=== PATIENT | female | born 1940 | race Caucasian/White ===

== ENCOUNTER 2017-09-22 15:40 | Inpatient (IN) | payer MEDICARE, BC ==
--- NOTE | ~2017-09-22 | PN ---
PATIENT:GABI TOLLIVER MEDICAL RECORD: [id number] LOCATION:J[facility]rell ADMISSION DATE: 09/22/17 PROGRESS NOTE DATE OF SERVICE: 10/10/2017 SUBJECTIVE: The patient's case was discussed with staff. She has no new complaint. OBJECTIVE: The patient has been significantly agitated, walking about the day room and the hallway attached to it, quite confused. Obviously, very emotionally distressed, but when asked about it, she is unable to indicate what is wrong. ASSESSMENT: No change in diagnoses. PLAN: The patient is eating reasonably well and taking her medications. The goal of treatment will be to reduce her emotional discomfort and reduce her agitation without worsening her already severe cognitive impairment or increasing her risk of falling. It seems like that would be a relatively easy thing to do, but it is not. At this point, given her [facility] and her current level of agitation, I do not think it is appropriate or safe for her to be managed in a long-term care setting. TRANSINT:[id number] Voice Confirmation ID: [id number] DOCUMENT ID: [id number] LAMAR DURBIN MD at 0912 CC: [id number] DICTATION DATE: 10/10/17 1217 SUGAR CONTROLLER: 10/10/17 1228 ADM IN [place] [id number] [place] [address]
--- NOTE | ~2017-09-22 | PN ---
PATIENT:GABI TOLLIVER MEDICAL RECORD: [id number] LOCATION:SylvesterFLAVIOJasbir PhanShabana ADMISSION DATE: 09/22/17 PROGRESS NOTE DATE OF SERVICE: 10/04/2017 SUBJECTIVE: The patient's case was discussed with staff. She has no new complaint. OBJECTIVE: The patient denies intent to harm herself or others. She is tolerating her medications well. ASSESSMENT: No change in diagnoses. PLAN: Current medicines and therapies have been reviewed, both will be maintained. Her long-term prognosis is guarded and I would anticipate that she can be transitioned out of the hospital soon if this level of improvement is maintained. TRANSINT:[id number] Voice Confirmation ID: [id number] DOCUMENT ID: [id number] LAMAR DURBIN MD at 0847 CC: [id number] DICTATION DATE: 10/04/17 1313 CATTYMAN: 10/04/17 1338 ADM IN [place] [address] [place] [address]
--- NOTE | ~2017-09-22 | PN ---
PATIENT:GABI TOLLIVER MEDICAL RECORD: [id number] LOCATION:JAM Terrell ADMISSION DATE: 09/22/17 PROGRESS NOTE DATE OF SERVICE: 09/25/2017 SUBJECTIVE: The patient does not offer a coherent complaint. OBJECTIVE: Staff report over the last 24 hours, the patient appears to be more confused than previously. She has not had any aggressive behavior during that time. On exam, the patient does seem perplexed. Mood is slightly anxious. Affect is distant and shallow. Speech is tangential and essentially nonsensical. Content of thought is positive for delusional ideation. Sensorium shows no improvement. ASSESSMENT: No change in diagnosis. PLAN: 1. Reduce Seroquel to 25 mg b.i.d. 2. Maintain other current medications. 3. Continue supportive therapy. TRANSINT:[id number] Voice Confirmation ID: [id number] DOCUMENT ID: [id number] GERA QURESHI III, MD at 1045 CC: [id number] DICTATION DATE: 09/25/17 1119 DOCTOR PODIATRIC MEDICINE: 09/25/17 1329 ADM IN [facility] [address] [place] [id number]
--- NOTE | ~2017-09-22 | PN ---
PATIENT:GABI TOLLIVER MEDICAL RECORD: [id number] LOCATION:JAM Terrell ADMISSION DATE: 09/22/17 PROGRESS NOTE DATE OF SERVICE: 10/01/2017 SUBJECTIVE: No new complaint. OBJECTIVE: The patient is showing improvement. She was actually joking with staff earlier today. On exam, mood is for the most part euthymic. Affect is generally pleasant. Speech continues to be very tangential. Content of thought continues to show delusional ideation. Sensorium does not show change. ASSESSMENT: No change in diagnosis. PLAN: 1. Continue current medications. 2. Continue supportive therapy. TRANSINT:[id number] Voice Confirmation ID: [id number] DOCUMENT ID: [id number] GERA QURESHI III, MD at 0657 CC: [id number] DICTATION DATE: 10/01/17 1135 CIGARETTE MAKING EXAMINER: 10/01/17 1157 ADM IN [place] [id number] [place] [id number]
--- NOTE | ~2017-09-22 | PN ---
PATIENT:GABI TOLLIVER MEDICAL RECORD: [id number] LOCATION:JAM Terrell ADMISSION DATE: 09/22/17 PROGRESS NOTE DATE OF SERVICE: 10/21/2017 SUBJECTIVE: No new complaint. OBJECTIVE: The patient has been occasionally noncompliant with medications; however, behavior has not escalated. She remains intrusive and has to be redirected. The patient had a valproic acid blood level of 70.5 this morning, which is within therapeutic range. On exam, the patient's mood is slightly elevated. Affect is childlike. Speech is rambling. Content of thought negative for overt psychosis. Sensorium unchanged. ASSESSMENT: No change in diagnosis. PLAN: 1. Continue all current medication. 2. Continue supportive therapy. TRANSINT:[id number] Voice Confirmation ID: [id number] DOCUMENT ID: [id number] GERA QURESHI III, MD at 0919 CC: [id number] DICTATION DATE: 10/21/17 1139 FURNACE HAND: 10/21/17 1217 ADM IN [place] [place] [address]
--- NOTE | ~2017-09-22 | DS ---
PATIENT:GABI TOLLIVER :44 MEDICAL RECORD: [id number] DISCHARGE SUMMARY ADMISSION DATE: 09/22/17 DISCHARGE DATE: 10/22/17 DATE OF ADMISSION: 09/22/2017 DATE OF DISCHARGE: 10/22/2017 HISTORY: This was the first long term admission for this 77-year-old white female. The patient had a past history of Alzheimer dementia and had become confused and agitated and was uncooperative with staff at her [facility]. For further details, please see previously dictated history. COURSE IN THE HOSPITAL: The patient was examined by primary care. She had coexisting illnesses, which included hypertension, hypothyroidism, and vitamin D deficiency. Over the course of the hospitalization, the patient remained quite labile and required frequent redirection. Initially, she was treated in the main part with neuroleptic medications but did become sedated. Emphasis was gradually changed to valproic acid. The patient received Depakene syrup and dosage was eventually stabilized at 750 mg b.i.d. On this level, she achieved therapeutic blood level of 70. She was maintained on Seroquel 50 mg b.i.d. and tolerated this medication well. Aside from this, she was kept on other nonpsychiatric medicines, which included Linzess 145 mcg daily. Mevacor 20 mg bedtime, Aricept 10 mg at bedtime, Synthroid 25 mcg daily, Megace 40 mg daily, lisinopril 10 mg daily and vitamin D 5000 units daily. Contact was maintained with the patient's family and eventually decision was reached to have her return to [facility] as her behavior had improved. FINAL DIAGNOSES: AXIS I: Alzheimer dementia with behavioral disturbance - improving. AXIS II: No diagnosis. AXIS III: Hypertension, hypothyroidism, hypercholesterolemia. AXIS IV: Moderate. AXIS V: 38. PLAN: 1. The patient is discharged on current medications. 2. Diet and activities as tolerated. 3. Follow up through the primary care physician at the [facility]. TRANSINT:[id number] Voice Confirmation ID: [id number] DOCUMENT ID: [id number] GERA QURESHI III, MD at 1056 CC: [id number] DICTATION DATE: 10/22/17 1013 LIAISON INSPECTION LABORATORY ASSISTANT: 10/22/17 2332 DIS IN 10/22/17 [place] [id number] [place] [address]
--- NOTE | ~2017-09-22 | PN ---
PATIENT:GABI TOLLIVER MEDICAL RECORD: [id number] LOCATION:JAM Terrell ADMISSION DATE: 09/22/17 PROGRESS NOTE DATE OF SERVICE: 09/28/2017 SUBJECTIVE: No new complaint. OBJECTIVE: The patient is continuing to show moderate improvement. She is tolerating her current medication without great difficulty. On exam, mood is slightly anxious. Affect is a peculiar with occasional inappropriate laughter. Speech is rambling. Content of thought continues to show evidence of delusional ideation and hallucinations. Sensorium is unchanged. ASSESSMENT: No change in diagnosis. PLAN: 1. Continue all current medications. 2. Continue supportive therapy. TRANSINT:[id number] Voice Confirmation ID: [id number] DOCUMENT ID: [id number] GERA QURESHI III, MD at 0848 CC: [id number] DICTATION DATE: 09/28/17 0800 CRM CAMPAIGN MANAGER: 09/28/17 1309 ADM IN [place] [address] [place] [address]
--- NOTE | ~2017-09-22 | PN ---
PATIENT:GABI TOLLIVER MEDICAL RECORD: [id number] LOCATION:JAM PhanShabana ADMISSION DATE: 09/22/17 PROGRESS NOTE DATE OF SERVICE: 10/02/2017 SUBJECTIVE: The patient's case was discussed with staff. She has no new complaint. OBJECTIVE: The patient denies intent to harm herself or others and generally tolerates her medicines well. Eye contact is fair. Concentration is fair. ASSESSMENT: No change in diagnoses. PLAN: Current medicines have been reviewed and will be maintained. Her long-term prognosis is guarded. Brief supportive and educational interventions were made. TRANSINT:[id number] Voice Confirmation ID: [id number] DOCUMENT ID: [id number] LAMAR DURBIN MD at 1024 CC: [id number] DICTATION DATE: 10/02/17 1457 TECHNICIAN: 10/02/17 1526 ADM IN [place] [address] [place] [id number]
--- NOTE | ~2017-09-22 | PN ---
PATIENT:GABI TOLLIVER MEDICAL RECORD: [id number] LOCATION:JAM Sylvester112 ADMISSION DATE: 09/22/17 PROGRESS NOTE DATE OF SERVICE: 10/19/2017 SUBJECTIVE: No coherent complaint. OBJECTIVE: The patient remains intrusive and had to be redirected. She eventually required p.r.n. because of her intrusiveness. On exam, mood is elevated. Affect is childlike and expansive. Speech is nonsensical. Content of thought unchanged. Sensorium unchanged. ASSESSMENT: No change in diagnosis. PLAN: 1. We will continue current treatment plan for now. 2. Continue supportive therapy. TRANSINT:[id number] Voice Confirmation ID: [id number] DOCUMENT ID: [id number] GERA QURESHI III, MD at 1124 CC: [id number] DICTATION DATE: 10/19/17 1147 MANAGED CARE MANAGER: 10/19/17 1200 ADM IN [place] [address] [place] [address]
--- NOTE | ~2017-09-22 | PN ---
PATIENT:GABI TOLLIVER MEDICAL RECORD: [id number] LOCATION:JAM Terrell ADMISSION DATE: 09/22/17 PROGRESS NOTE DATE OF SERVICE: 10/18/2017 SUBJECTIVE: No new complaint. OBJECTIVE: The patient's behavior has continued to worsen. She is increasingly intrusive and has been disrobing in front of male patients. She has to be redirected frequently. On exam, mood is elevated. Affect is inappropriate, overly affectionate. Speech is tangential and rambling. Content of thought is negative for overt psychosis. Sensorium unchanged. ASSESSMENT: No change in diagnosis. PLAN: 1. Change Depakote to 750 mg twice a day. 2. Depakote blood level on the . 3. Resume Seroquel at 50 mg b.i.d. TRANSINT:[id number] Voice Confirmation ID: [id number] DOCUMENT ID: [id number] GERA QURESHI III, MD at 1733 CC: [id number] DICTATION DATE: 10/18/17 1428 LEAD MOBILE DEVELOPER: 10/18/17 1522 ADM IN [facility] [address] [place] [address]
--- NOTE | ~2017-09-22 | PN ---
PATIENT:GABI TOLLIVER MEDICAL RECORD: [id number] LOCATION:JAM Terrell ADMISSION DATE: 09/22/17 PROGRESS NOTE DATE OF SERVICE: 10/15/2017 SUBJECTIVE: No new complaint. OBJECTIVE: The patient continues to show improvement in terms of her overall behavior, although she remains somewhat intrusive and inappropriately affectionate. She continues to have difficulty with bowel incontinence. The patient shows a significant degree of self neglect consistent with her profound dementia. Case was discussed with treatment team and we will anticipate discharge later this week. On exam, mood is somewhat elevated. Affect very childlike. Speech is nonsensical. Content of thought and sensorium both unchanged. ASSESSMENT: No change in diagnosis. PLAN: 1. Continue current medication. 2. Continue supportive therapy. TRANSINT:[id number] Voice Confirmation ID: [id number] DOCUMENT ID: [id number] GERA QURESHI III, MD at 1025 CC: [id number] DICTATION DATE: 10/15/17 1052 BLENDER CONVEYOR OPERATOR: 10/15/17 1141 ADM IN [place] [id number] [place] [address]
--- NOTE | ~2017-09-22 | PN ---
PATIENT:GABI TOLLIVER MEDICAL RECORD: [id number] LOCATION:DerekMelaMARCELO PhanShabana ADMISSION DATE: 09/22/17 PROGRESS NOTE DATE OF SERVICE: 10/08/2017 SUBJECTIVE: The patient's case was discussed with staff. She has no new complaint. OBJECTIVE: The patient denies intent to harm herself or others. She tolerates her medicines well. She has been agitated and disruptive. She has not been openly aggressive today. ASSESSMENT: No change in diagnoses. PLAN: Current medicines have been reviewed and will be maintained. Her long-term prognosis is guarded. Brief supportive and educational interventions were made. TRANSINT:[id number] Voice Confirmation ID: [id number] DOCUMENT ID: [id number] LAMAR DURBIN MD at 1150 CC: [id number] DICTATION DATE: 10/08/17 1458 VP COMMUNICATIONS: 10/08/17 1831 ADM IN [facility] [address] [place] [address]
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
--- NOTE | ~2017-09-22 | PN ---
PATIENT:GABI TOLLIVER MEDICAL RECORD: [id number] LOCATION:RAMAKRISHNAJasbir PhanShabana ADMISSION DATE: 09/22/17 PROGRESS NOTE DATE OF SERVICE: 10/03/2017 SUBJECTIVE: The patient's case was discussed with staff. She has no new complaint. OBJECTIVE: The patient is in good behavioral control with limited insight about her condition. She generally tolerates her medicines well. She is very poorly oriented. Clearly is having difficulty processing things in her environment and I think that causes her to become anxious and then aggressive. Although, I did not witness it this morning, I think that is what happened when she became aggressive and required p.r.n. medication. Based on this line of thinking, I am going to prescribe her a scheduled dose of Klonopin, which hopefully will relieve her anxiety without significantly impacting her ability to ambulate. TRANSINT:[id number] Voice Confirmation ID: [id number] DOCUMENT ID: [id number] LAMAR DURBIN MD at 1024 CC: [id number] DICTATION DATE: 10/03/17 1031 TREE EXPERT: 10/03/17 1042 ADM IN [place] [id number] [place] [id number]
--- NOTE | ~2017-09-22 | PN ---
PATIENT:GABI TLOLIVER MEDICAL RECORD: [id number] LOCATION:JAM PhanShabana ADMISSION DATE: 09/22/17 PROGRESS NOTE DATE OF SERVICE: 10/07/2017 SUBJECTIVE: The patient's case was discussed with staff. She has no new complaint. OBJECTIVE: The patient is in good behavioral control. She has no active thoughts of harming herself or others. She is tolerating her medicines well. ASSESSMENT: No change in diagnoses. PLAN: Brief supportive and educational interventions were made. The patient's long-term prognosis is guarded. TRANSINT:[id number] Voice Confirmation ID: [id number] DOCUMENT ID: [id number] LAMAR DURBIN MD at 0849 CC: [id number] DICTATION DATE: 10/07/17 1432 BUSHEL WORKER: 10/07/17 1751 ADM IN [place] [id number] [place] [address]
--- NOTE | ~2017-09-22 | PN ---
PATIENT:GABI TOLLIVER MEDICAL RECORD: [id number] LOCATION:JAM ReedMelaShabana ADMISSION DATE: 09/22/17 PROGRESS NOTE DATE OF SERVICE: 10/05/2017 SUBJECTIVE: The patient was seen for hospital rounds and her case was discussed with staff. OBJECTIVE: The patient has no new complaints. She was agitated last night, but has no recollection of those events. She is continuing to have disorganized and sometimes aggressive behavior, but in total she has improved significantly. ASSESSMENT: No change in diagnoses. PLAN: Brief supportive and educational interventions were made. Her long-term prognosis is guarded. I am going to increase her Seroquel to 25 mg 3 times daily and hopefully she will tolerate this and continue to show improvement. TRANSINT:[id number] Voice Confirmation ID: [id number] DOCUMENT ID: [id number] LAMAR DURBIN MD at 1117 CC: [id number] DICTATION DATE: 10/05/17 0859 BUSINESS SPECIALIST: 10/05/17 0918 ADM IN [place] [id number] [place] [id number]
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
--- NOTE | ~2017-09-22 | PN ---
PATIENT:GABI TOLLIVER MEDICAL RECORD: [id number] LOCATION:JAM ReedMelaShabana ADMISSION DATE: 09/22/17 PROGRESS NOTE DATE OF SERVICE: 10/12/2017 SUBJECTIVE: The patient's case was discussed with staff. She has no new complaint. OBJECTIVE: The patient slept reasonably well last night. She is eating marginally well. She has been quite confused and has exhibited a great deal of wandering, confusion, and some agitation with it. In reviewing her situation and medications, I do not think it is going to be helpful to significantly adjust her medicines. I think that this is a reasonable balance between agitation and the medications with the goal in mind to reduce some of her disruptive behaviors without significantly interfering with her ability to ambulate. TRANSINT:[id number] Voice Confirmation ID: [id number] DOCUMENT ID: [id number] LAMAR DURBIN MD at 1430 CC: [id number] DICTATION DATE: 10/12/17 1145 PRIMER CHARGER: 10/12/17 1241 ADM IN [place] [id number] [place] [id number]
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
--- NOTE | ~2017-09-22 | PN ---
PATIENT:GABI TOLLIVER MEDICAL RECORD: [id number] LOCATION:JAM Terrell ADMISSION DATE: 09/22/17 PROGRESS NOTE DATE OF SERVICE: 09/27/2017 SUBJECTIVE: No new complaint. OBJECTIVE: The patient is much more redirectable. She does wander quite a bit, but is sleeping better at night. On exam, mood is euthymic. Affect is fairly bland today. Speech is tangential. Content of thought is still positive for auditory hallucinations. Sensorium shows no change. ASSESSMENT: No change in diagnosis. PLAN: 1. Continue current medications. 2. Continue supportive therapy. TRANSINT:[id number] Voice Confirmation ID: [id number] DOCUMENT ID: [id number] GERA QUREHSI III, MD at 0727 CC: [id number] DICTATION DATE: 09/27/171101 OIL LEASE BUYER: 09/27/17 1126 ADM IN [place] [id number] [place] [id number]
--- NOTE | ~2017-09-22 | PN ---
PATIENT:GABI TOLLIVER MEDICAL RECORD: [id number] LOCATION:JAM Terrell ADMISSION DATE: 09/22/17 PROGRESS NOTE DATE OF SERVICE: 10/16/2017 SUBJECTIVE: No new complaint. OBJECTIVE: The patient unfortunately has shown a little aggression in her behavior. She then became combative last night and had to receive PRN medication. The patient is restless and in her present mood she continues to experience visual hallucinattions and has been observed picking unseen objects off the floor. She remains intrusive. On exam, the patient's mood is euthymic, affect is very childlike. Speech is nonsensical. Content of thought as noted above. Sensorium unchanged. ASSESSMENT: No change in diagnosis. PLAN: 1. We will likely adjust dosage of Depakote. 2. Other medication adjustment as indicated. 3. Continue supportive therapy. TRANSINT:[id number] Voice Confirmation ID: [id number] DOCUMENT ID: [id number] GERA QURESHI III, MD at 0913 CC: [id number] DICTATION DATE: 10/16/17 1117 PRINTER SMALL PRINT SHOP: 10/16/17 1144 ADM IN [facility] [address] [place] [address]
--- NOTE | ~2017-09-22 | PN ---
PATIENT:GABI TOLLIVER MEDICAL RECORD: [id number] LOCATION:JAM Terrell ADMISSION DATE: 09/22/17 PROGRESS NOTE DATE OF SERVICE: 09/26/2017 SUBJECTIVE: No new complaint. The patient continues to speak in a basically nonsensical fashion. OBJECTIVE: The patient remains fairly restless, but is not agitated or combative. Speech is rambling and nonsensical. Mood is anxious. Affect is very shallow. Content of thought is positive for delusional ideation. Sensorium shows no change. ASSESSMENT: No change in diagnosis. PLAN: 1. Continue current medications. 2. Continue supportive therapy. TRANSINT:[id number] Voice Confirmation ID: [id number] DOCUMENT ID: [id number] GERA QURESHI III, MD at 0510 CC: [id number] DICTATION DATE: 09/26/17 1149 CLAIMS ADJUSTER CROP: 09/26/17 1219 ADM IN [place] [address] [place] [address]
--- NOTE | ~2017-09-22 | PN ---
PATIENT:GABI TOLLIVER MEDICAL RECORD: [id number] LOCATION:JAM Terrell ADMISSION DATE: 09/22/17 PROGRESS NOTE DATE OF SERVICE: 10/17/2017 SUBJECTIVE: The patient's case was discussed with staff. She has no new complaint. OBJECTIVE: The patient denies intent to harm herself or others. She is wandering and confused, but not openly aggressive. ASSESSMENT: No change in diagnoses. PLAN: Current medicines and therapies have been reviewed and will be maintained. Long-term prognosis is guarded. TRANSINT:[id number] Voice Confirmation ID: [id number] DOCUMENT ID: [id number] LAMAR DURBIN MD at 1344 CC: [id number] DICTATION DATE: 10/17/17 1226 VOTATOR MACHINE OPERATOR: 10/17/17 1233 ADM IN [facility] [address] [place] [address]
--- NOTE | ~2017-09-22 | PN ---
PATIENT:GABI TOLLIVER MEDICAL RECORD: [id number] LOCATION:JAM Terrell ADMISSION DATE: 09/22/17 PROGRESS NOTE DATE OF SERVICE: 10/09/2017 SUBJECTIVE: The patient's case was discussed with staff. She has no new complaint. OBJECTIVE: The patient denies intent to harm herself or others. She at times is uncooperative and last night, she refused to take medications. ASSESSMENT: No change in diagnoses. PLAN: Current medicines have been reviewed, but it is difficult to make reasonable adjustments when she is not taking them consistently. The treatment team suggested a long-acting injectable antipsychotic, but I am reluctant to do this in a patient who does not have a chronic mental illness. It may become necessary if she continues to be noncompliant and her behaviors make her unmanageable in a long-term care setting. At this point, I am going to continue to encourage her to take her medicines and will work with the staff on being persistent in getting her to take her medicines. That probably is going to be a successful endeavor, but I want to try it nevertheless so that I can at least demonstrate to myself that I have tried what I can to help her and make her more manageable in the detention. TRANSINT:[id number] Voice Confirmation ID: [id number] DOCUMENT ID: [id number] LAMAR DURBIN MD at 1206 CC: [id number] DICTATION DATE: 10/09/17 1203 TIMBER CUTTER: 10/09/17 1213 ADM IN [place] [id number] [place] [address]
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
--- NOTE | ~2017-09-22 | PN ---
PATIENT:GABI TOLLIVER MEDICAL RECORD: [id number] LOCATION:JAM Terrell ADMISSION DATE: 09/22/17 PROGRESS NOTE DATE OF SERVICE: 10/11/2017 SUBJECTIVE: The patient's case was discussed with staff. She has no new complaint. OBJECTIVE: The patient is severely impaired cognitively. She has very limited insight about her condition. She generally tolerates her medicines well. ASSESSMENT: No change in diagnoses. PLAN: Supportive and educational interventions were made. Current medicines have been reviewed. I think the patient is close to maximum hospital benefit and if this level of improvement continues, I would anticipate she can be transitioned out of the hospital soon. TRANSINT:[id number] Voice Confirmation ID: [id number] DOCUMENT ID: [id number] LAMAR DURBIN MD at 1139 CC: [id number] DICTATION DATE: 10/11/17 1318 DEPUTY GENERAL COUNSEL: 10/11/17 1935 ADM IN [facility] [address] [place] [address]
[2017-09-22 19:30] VITALS: BP 126/73
[2017-09-23] MEDS ORDERED: LISINOPRIL10 MG PO (00:26)
[2017-09-23] MEDS ORDERED: LOVASTATIN20 MG PO (00:27)
[2017-09-23] MEDS ORDERED: MEGACE40 MG PO (00:28)
[2017-09-23] MEDS ORDERED: MELATONIN 3 MG1 TAB PO (00:29)
[2017-09-23] MEDS ORDERED: VITAMIN D5000 UNIT PO (00:30)
[2017-09-23] MEDS ORDERED: ZOLOFT100 MG PO (00:31)
[2017-09-23] MEDS ORDERED: KLONOPIN0.5 MG PO (00:32)
[2017-09-23] MEDS ORDERED: DEPAKOTE SPRIN125 MG PO (00:35)
[2017-09-23 06:19] VITALS: BP 140/59
[2017-09-23 06:35] LABS: BASOPHILS 0.2 % (0-2); EOSINOPHILS 1.9 % (0-7); HEMATOCRIT 36.3 % (36.0-48.0); HEMOGLOBIN 11.9 g/dL (12-16); IMMATURE GRANULOCYTES 0.2 % (0-5); LYMPHOCYTES 35.9 % (15-50); MCH 30.7 pg (26.0-34.0); MCHC 32.8 g/dL (31.0-37.0); MCV 93.8 fL (80.0-100.0); MEAN PLATELET VOLUME 10.1 fL (7.4-10.4); MONOCYTES 8.9 % (2-11); NEUTROPHILS 52.9 % (40-80); PLATELET COUNT 146 10x3/uL (130-400); RBC 3.87 10x6/uL (4.00-5.40); RDW 13.8 % (11.5-14.5); WBC 5.8 10x3/uL (4.8-10.8)
[2017-09-23 07:34] LABS: ALBUMIN 2.7 g/dL (3.4-5.0); ALKALINE PHOSPHATASE 64 U/L (46-116); ALT (SGPT) 25 U/L (10-68); CALC OSMOLALITY 284 mosm/kg (275-300); CALCIUM 8.3 mg/dL (8.5-10.1); CARBON DIOXIDE 25.2 mmol/L (21.0-32.0); CHLORIDE - SERUM 108 mmol/L (98-107); CHOL - HDL RATIO 3.4 ratio (2.3-4.1); CHOLESTEROL, TOTAL 146 mg/dL (0-200); CREATININE - SERUM 0.6 mg/dL (0.6-1.3); GLUCOSE 92 mg/dL (74-106); HDL CHOLESTEROL 43 mg/dL (32-96); LDL CHOLESTEROL 89 mg/dL (0-100); LDL-HDL RATIO 2.1 ratio (1.5-3.5); POTASSIUM - SERUM 3.7 mmol/L (3.5-5.1); SODIUM 142 mmol/L (136-145); THYROID STIMULATING HORMONE 4.06 uIU/mL (0.36-3.74); TRIGLYCERIDE 72 mg/dL (30-200); UREA NITROGEN 19 mg/dL (7-18); VALPROIC ACID (DEPAKOTE) 15.7 ug/mL (50.0-100.0); eGFR NON AFRICAN AMERICAN > 90 mL/min (90-120)
[2017-09-23 08:46] VITALS: BP 106/70
[2017-09-23 15:54] VITALS: BMI 22.7
[2017-09-23 19:54] VITALS: BP 114/39
[2017-09-24 07:26] LABS: VITAMIN D 25 HYDROXY 35.9 ng/mL (30.0-100.0)
[2017-09-24 08:00] VITALS: BP 128/68
[2017-09-24 08:18] LABS: FOLATE (FOLIC ACID) - SERUM 10.3 ng/mL (>3.0)
[2017-09-24 09:19] LABS: RAPID PLASMA REAGIN Non Reactive (Non Reactive)
[2017-09-24 14:28] VITALS: BMI 22.7
[2017-09-24 21:23] VITALS: BP 147/65
[2017-09-25 04:20] LABS: APPEARANCE CLEAR (CLEAR); BACTERIA FEW /hpf (NONE SEEN); BILIRUBIN NEGATIVE (NEGATIVE); COLOR YELLOW (YELLOW); EPITHELIAL CELLS 0-5 /hpf (0-5); GLUCOSE NEGATIVE (NEGATIVE); KETONE NEGATIVE (NEGATIVE); NITRITE NEGATIVE (NEGATIVE); PROTEIN NEGATIVE (NEGATIVE); RED CELLS - URINE 0-5 /hpf (0-5); UROBILINOGEN NORMAL (NORMAL); WHITE CELLS - URINE 0-5 /hpf (0-5)
[2017-09-25] MEDS ORDERED: ACETAMINOPHEN500 M1 PO (07:43)
[2017-09-25 07:59] VITALS: BP 138/93
[2017-09-25 19:30] VITALS: BP 117/50
[2017-09-26 10:00] VITALS: BP 148/77
[2017-09-26 19:43] VITALS: BP 117/69
[2017-09-27 07:07] LABS: APPEARANCE SLT CLOUDY (CLEAR); BILIRUBIN NEGATIVE (NEGATIVE); COLOR DK YELLOW (YELLOW); GLUCOSE NEGATIVE (NEGATIVE); KETONE NEGATIVE (NEGATIVE); NITRITE NEGATIVE (NEGATIVE); PROTEIN NEGATIVE (NEGATIVE); UROBILINOGEN NORMAL (NORMAL)
[2017-09-27 07:17] LABS: EPITHELIAL CELLS 0-5 /hpf (0-5); MUCUS >1+ /lpf (NONE SEEN); RED CELLS - URINE 0-5 /hpf (0-5); WHITE CELLS - URINE OCC /hpf (0-5)
[2017-09-27 07:18] LABS: GRANULAR CAST OCC /lpf (NONE SEEN)
[2017-09-27 09:47] VITALS: BP 131/87
[2017-09-27 19:44] VITALS: BP 130/86
[2017-09-28 10:17] VITALS: BP 127/76
[2017-09-28 19:27] VITALS: BP 122/64
[2017-09-29 07:00] VITALS: BP 126/78
[2017-09-29 21:00] VITALS: BP 124/50
[2017-09-30 07:00] VITALS: BP 135/56
[2017-09-30 20:56] VITALS: BP 121/62
[2017-10-01 10:02] VITALS: BP 143/77
[2017-10-01 19:58] VITALS: BP 157/54
[2017-10-02 10:09] VITALS: BP 123/59
[2017-10-02 19:59] VITALS: BP 128/67
[2017-10-03 10:22] VITALS: BP 122/72
[2017-10-03 19:31] VITALS: BP 128/83
[2017-10-04 09:22] VITALS: BP 112/67
[2017-10-04 19:47] VITALS: BP 117/50
[2017-10-05 09:12] VITALS: BP 114/70
[2017-10-05 20:13] VITALS: BP 110/64
[2017-10-06 07:43] VITALS: BP 118/72
[2017-10-06 20:01] VITALS: BP 124/60
[2017-10-07 07:00] VITALS: BP 120/71
[2017-10-07 19:44] VITALS: BP 134/51
[2017-10-08 08:57] VITALS: BP 131/70
[2017-10-08 20:10] VITALS: BP 111/50
[2017-10-09 09:52] VITALS: BP 122/68
[2017-10-09 19:45] VITALS: BP 104/71
[2017-10-09 20:09] VITALS: BP 126/83
[2017-10-10 09:51] VITALS: BP 118/64
[2017-10-10 23:34] VITALS: BP 118/62
[2017-10-11 09:56] VITALS: BP 128/68
[2017-10-11 20:08] VITALS: BP 124/62
[2017-10-12 07:37] VITALS: BP 123/54
[2017-10-12 08:42] VITALS: BP 156/95
[2017-10-12 10:27] VITALS: BP 123/54
[2017-10-12 19:57] VITALS: BP 124/60
[2017-10-13 07:34] VITALS: BP 125/80
[2017-10-13 18:14] LABS: BASOPHILS 0.3 % (0-2); EOSINOPHILS 1.8 % (0-7); HEMATOCRIT 40.4 % (36.0-48.0); HEMOGLOBIN 13.5 g/dL (12-16); IMMATURE GRANULOCYTES 0.2 % (0-5); LYMPHOCYTES 37.5 % (15-50); MCH 32.2 pg (26.0-34.0); MCHC 33.4 g/dL (31.0-37.0); MCV 96.4 fL (80.0-100.0); MEAN PLATELET VOLUME 10.5 fL (7.4-10.4); MONOCYTES 12.6 % (2-11); NEUTROPHILS 47.6 % (40-80); PLATELET COUNT 176 10x3/uL (130-400); RBC 4.19 10x6/uL (4.00-5.40); RDW 13.9 % (11.5-14.5); WBC 9.1 10x3/uL (4.8-10.8)
[2017-10-13 18:39] LABS: ANION GAP 12.8 mmol/L (8-16); CALCIUM 9.4 mg/dL (8.5-10.1); CARBON DIOXIDE 27.4 mmol/L (21.0-32.0); CREATININE - SERUM 0.9 mg/dL (0.6-1.3); POTASSIUM - SERUM 4.2 mmol/L (3.5-5.1); VALPROIC ACID (DEPAKOTE) 46.3 ug/mL (50.0-100.0)
[2017-10-13 23:56] VITALS: BP 130/79
[2017-10-14 19:16] VITALS: BP 121/66
[2017-10-15 07:00] VITALS: BP 115/70
[2017-10-15 19:52] VITALS: BP 156/60
[2017-10-16 10:24] VITALS: BP 119/70
[2017-10-16 19:54] VITALS: BP 110/83
[2017-10-17 07:41] VITALS: BP 140/58
[2017-10-17 19:56] VITALS: BP 120/58
[2017-10-18 09:28] VITALS: BP 98/76
[2017-10-18 20:10] VITALS: BP 149/74
[2017-10-19 07:00] VITALS: BP 132/70
[2017-10-19 19:57] VITALS: BP 136/73
[2017-10-20 07:52] VITALS: BP 136/76
[2017-10-20 19:53] VITALS: BP 154/53
[2017-10-21 07:00] VITALS: BP 115/84
[2017-10-21] MEDS ORDERED: LINZESS145 MCG PO (16:12)
[2017-10-21] MEDS ORDERED: SEROQUEL25 MG PO (16:12)
[2017-10-21] MEDS ORDERED: DEPAKENE 2250 MG/5 M PO (16:12)
[2017-10-21] MEDS ORDERED: SYNTHROID25 MCG PO (16:13)
[2017-10-22 07:00] VITALS: BP 143/77
== END 2017-10-22 12:40 | DRG 57 ==
LOC: D.PSYCH 15:40
PROVIDERS: Family Medicine; Psychiatry & Neurology Psychiatry
DX: G30.9 Alzheimer's disease, unspecified (principal); F02.81 Dementia in other diseases classified elsewhere, unspecified severity, with behavioral disturbance; I10 Essential (primary) hypertension; E03.9 Hypothyroidism, unspecified; E78.00 Pure hypercholesterolemia, unspecified; F41.8 Other specified anxiety disorders; E55.9 Vitamin D deficiency, unspecified; R63.0 Anorexia; Z68.22 Body mass index [BMI] 22.0-22.9, adult; E78.5 Hyperlipidemia, unspecified; K59.00 Constipation, unspecified; M54.9 Dorsalgia, unspecified

== ENCOUNTER 2017-11-05 20:41 | Inpatient (IN) | payer MEDICARE, BC ==
[~2017-11-05] VITALS: Ht 165.1 cm; Wt 54.2 kg
--- NOTE | ~2017-11-05 | PN ---
PATIENT:GABI TOLLIVER MEDICAL RECORD: [id number] LOCATION:RAMAKRISHNAJasbir DerekMelaShabana ADMISSION DATE: 11/05/17 PROGRESS NOTE DATE OF SERVICE: 11/21/2017 SUBJECTIVE: The patient's case was discussed with staff. She has no new complaint. OBJECTIVE: The patient is in good behavioral control with limited insight about her condition. She tolerates her medicines well. ASSESSMENT: No change in diagnoses. PLAN: Current medicines and therapies have been reviewed and will be maintained. Long-term prognosis is guarded. I anticipate she can be transitioned out of the hospital soon. TRANSINT:[id number] Voice Confirmation ID: [id number] DOCUMENT ID: [id number] LAMAR DURBIN MD at 0804 CC: [id number] DICTATION DATE: 11/21/17 1416 SOFTWARE APPLICATIONS DESIGNER: 11/21/17 1429 ADM IN [place] [id number] [place] [id number]
--- NOTE | ~2017-11-05 | PN ---
PATIENT:GABI TOLLIVER MEDICAL RECORD: [id number] LOCATION:JAM Phan112 ADMISSION DATE: 11/05/17 PROGRESS NOTE DATE OF SERVICE: 11/22/2017 SUBJECTIVE: No new complaint noted. OBJECTIVE: The patient has continued to do fairly well. She will be evaluated for longterm on Saturday. On exam, mood is euthymic. Affect is simple and childlike. Speech is repetitive. Content of thought is negative for overt psychosis. Sensorium unchanged. ASSESSMENT: No change in diagnosis. PLAN: 1. Continue current medication. 2. Continue supportive therapy. TRANSINT:[id number] Voice Confirmation ID: [id number] DOCUMENT ID: [id number] GERA QURESHI III, MD at 1037 CC: [id number] DICTATION DATE: 11/22/17 1117 YARD ASSISTANT: 11/22/17 1300 ADM IN [place] [id number] [place] [address]
--- NOTE | ~2017-11-05 | PN ---
PATIENT:GABI TOLLIVER MEDICAL RECORD: [id number] LOCATION:RAMAKRISHNAJasbir DerekMelaShabana ADMISSION DATE: 11/05/17 PROGRESS NOTE DATE OF SERVICE: 11/09/2017 SUBJECTIVE: The patient's case was discussed with staff. She has no new complaint. OBJECTIVE: The patient is in good behavioral control with limited insight about her condition. She tolerates her medicines well. ASSESSMENT: No change in diagnoses. PLAN: Supportive and educational interventions were made. Senior Care prognosis is guarded. She clearly has improved significantly and I would anticipate she can be transitioned back to the assisted soon. TRANSINT:[id number] Voice Confirmation ID: [id number] DOCUMENT ID: [id number] LAMAR DURBIN MD at 1809 CC: [id number] DICTATION DATE: 11/09/17 1043 FIELD UNDERWRITER: 11/09/17 1125 ADM IN [facility] [address] [place] [address]
--- NOTE | ~2017-11-05 | PN ---
PATIENT:GABI TOLLIVER MEDICAL RECORD: [id number] LOCATION:JAM Phan112 ADMISSION DATE: 11/05/17 PROGRESS NOTE DATE OF SERVICE: 11/07/2017 SUBJECTIVE: The patient's case was discussed with staff. She has no new complaint. OBJECTIVE: The patient is continuing to be inappropriate trying to hug and kiss others, not understanding what is going on. Her dementia is clearly quite advanced. ASSESSMENT: No change in diagnoses. PLAN: The patient will be maintained on current medicines, which I have not had an opportunity to become effective. She will be monitored for clinical changes associated with her use. In discussing the situation with the treatment team, I think that we are going to most definitely recommend a placement in a behavioral halfway as opposed to the type of facility she is currently in. Her long-term prognosis is exceedingly poor given the advanced nature of her illness. TRANSINT:[id number] Voice Confirmation ID: [id number] DOCUMENT ID: [id number] LAMAR DURBIN MD at 1247 CC: [id number] DICTATION DATE: 11/07/17 1340 WEIGHT LOSS COUNSELOR: 11/07/17 1432 ADM IN [facility] [address] [place] [address]
--- NOTE | ~2017-11-05 | PN ---
PATIENT:GABI TOLLIVER MEDICAL RECORD: [id number] LOCATION:DerekLUCIAJasbir PhanShabana ADMISSION DATE: 11/05/17 PROGRESS NOTE DATE OF SERVICE: 11/26/2017 SUBJECTIVE: The patient's case was discussed with staff. She has no new complaint. OBJECTIVE: The patient denies intent to harm herself or others. She tolerates her medicines well. ASSESSMENT: No change in diagnoses. PLAN: Brief supportive and educational interventions were made. Long-term prognosis is guarded. TRANSINT:[id number] Voice Confirmation ID: [id number] DOCUMENT ID: [id number] LAMAR DURBIN MD at 1444 CC: [id number] DICTATION DATE: 11/26/17 1518 HELP DESK REP: 11/26/17 1532 ADM IN [place] [id number] [place] [id number]
--- NOTE | ~2017-11-05 | PN ---
PATIENT:GABI TOLLIVER MEDICAL RECORD: [id number] LOCATION:JAM Phan112 ADMISSION DATE: 11/05/17 PROGRESS NOTE DATE OF SERVICE: 11/25/2017 SUBJECTIVE: The patient's case was discussed with staff. She has no new complaint. OBJECTIVE: The patient is in good behavioral control with limited insight about her condition. She does tolerate her medicines well. She has been declined by the [facility] in [place] and at this point is being referred to another [place] [facility] [place]. If accepted, she may be discharged at any time. TRANSINT:[id number] Voice Confirmation ID: [id number] DOCUMENT ID: [id number] LAMAR DURBIN MD at 1016 CC: [id number] DICTATION DATE: 11/25/171908 LINE SERVICE PERSON: 11/26/17 0336 ADM IN [facility] [address] [place] [address]
--- NOTE | ~2017-11-05 | PN ---
PATIENT:GABI TOLLIVER MEDICAL RECORD: [id number] LOCATION:JAM Terrell ADMISSION DATE: 11/05/17 PROGRESS NOTE DATE OF SERVICE: 11/11/2017 SUBJECTIVE: The patient's case was discussed with staff. She has no new complaint. OBJECTIVE: The patient is in good behavioral control with limited insight about her condition. She tolerates her medicines well. ASSESSMENT: No change in diagnoses. PLAN: Brief supportive and educational interventions were made. Long-term prognosis is guarded. I anticipate the patient can be transitioned back to the residential soon if this level of improvement is maintained. TRANSINT:[id number] Voice Confirmation ID: [id number] DOCUMENT ID: [id number] LAMAR DURBIN MD at 1445 CC: [id number] DICTATION DATE: 11/11/17 1344 WELDING OPERATOR: 11/11/17 1359 ADM IN [place] [id number] [place] [address]
--- NOTE | ~2017-11-05 | PN ---
PATIENT:GABI TOLLIVER MEDICAL RECORD: [id number] LOCATION:RAMAKRISHNAJasbir PhanShabana ADMISSION DATE: 11/05/17 PROGRESS NOTE DATE OF SERVICE: 11/12/2017 SUBJECTIVE: The patient's case was discussed with staff. She has no new complaint. OBJECTIVE: The patient is sleepy. I do believe that this is the Klonopin catching up with her. I am going to discontinue it today and will likely restart it at a lower dose later. ASSESSMENT: No change in diagnoses. PLAN: Changes were made as described above. It is my opinion that the patient is in need of a prison or a prison unit that has a greater specialized focus on dementia patients. TRANSINT:[id number] Voice Confirmation ID: [id number] DOCUMENT ID: [id number] LAMAR DURBIN MD at 1147 CC: [id number] DICTATION DATE: 11/12/17 1509 STAFF ELECTRONIC WARFARE OFFICER: 11/12/17 1521 ADM IN [place] [id number] [place] [address]
--- NOTE | ~2017-11-05 | PN ---
PATIENT:GABI TOLLIVER MEDICAL RECORD: [id number] LOCATION:JAM PhanShabana ADMISSION DATE: 11/05/17 PROGRESS NOTE DATE OF SERVICE: 11/27/2017 SUBJECTIVE: The patient's case was discussed with staff. She has no new complaint. OBJECTIVE: The patient is in good behavioral control with limited insight about her condition. She does tolerate her medicines well. ASSESSMENT: No change in diagnoses. PLAN: Brief supportive and educational interventions were made. The patient is at or near her baseline level of functioning and is going to be transitioned to the senior living today. TRANSINT:[id number] Voice Confirmation ID: [id number] DOCUMENT ID: [id number] LAMAR DURBIN MD at 1403 CC: [id number] DICTATION DATE: 11/27/17 1456 HIGH SCHOOL ART TEACHER: 11/27/17 1607 DIS IN 11/27/17 [place] [id number] [place] [address]
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
--- NOTE | ~2017-11-05 | PN ---
PATIENT:GABI TOLLIVER MEDICAL RECORD: [id number] LOCATION:DerekLUCIAJasbir DerekMelaShabana ADMISSION DATE: 11/05/17 PROGRESS NOTE DATE OF SERVICE: 11/13/2017 SUBJECTIVE: The patient's case was discussed with staff. She has no new complaint. OBJECTIVE: The patient denies intent to harm herself or others. She generally tolerates her medicines well. Eye contact is fair. ASSESSMENT: No change in diagnoses. PLAN: The patient will be maintained on current medicines, which I have reviewed. Her long-term prognosis is guarded. TRANSINT:[id number] Voice Confirmation ID: [id number] DOCUMENT ID: [id number] LAMAR DURBIN MD at 1304 CC: [id number] DICTATION DATE: 11/13/17 1222 RETAIL SUPPORT MANAGER: 11/13/17 1319 ADM IN [place] [id number] [place] [address]
--- NOTE | ~2017-11-05 | PN ---
PATIENT:GABI TOLLIVER MEDICAL RECORD: [id number] LOCATION:JAM Terrell ADMISSION DATE: 11/05/17 PROGRESS NOTE DATE OF SERVICE: 11/15/2017 SUBJECTIVE: No new complaint noted. OBJECTIVE: The patient is cooperative. She is tolerating medications well. On exam, mood is euthymic. Affect is very constricted. Speech is terse. Content of thought is negative for overt psychosis. Sensorium shows no change. ASSESSMENT: No change in diagnosis. PLAN: 1. Continue current medications. 2. Continue supportive therapy. TRANSINT:[id number] Voice Confirmation ID: [id number] DOCUMENT ID: [id number] GERA QURESHI III, MD at 1341 CC: [id number] DICTATION DATE: 11/15/17 1149 CHEMICAL PLANT OPERATOR: 11/15/17 1154 ADM IN [facility] [address] [place] [address]
--- NOTE | ~2017-11-05 | PN ---
PATIENT:GABI TOLLIVER MEDICAL RECORD: [id number] LOCATION:JAM Terrell ADMISSION DATE: 11/05/17 PROGRESS NOTE DATE OF SERVICE: 11/19/2017 SUBJECTIVE: The patient's case was discussed with staff. She has no new complaint. OBJECTIVE: The patient is in good behavioral control with limited insight about her condition. She tolerates her medicines well. She is much more redirectable. Her long-term prognosis is guarded. At this point, there is a facility in [place] that has a wing that is restricted to females only. I think this would help her since a big part of her confusion is that she thinks every man is her or son and wants to hug or kiss him, not in a sexual way, but just being affectionate and then when she stopped from doing so, she becomes angry. I think it will help her to be in that kind of a unit. Unfortunately that will separate her from her who is in [place], but he recognizes the seriousness of her problem and is willing to give this a try. TRANSINT:[id number] Voice Confirmation ID: [id number] DOCUMENT ID: [id number] LAMAR DURBIN MD at 1218 CC: [id number] DICTATION DATE: 11/19/17 1452 WIND TURBINE PERFORMANCE ENGINEER: 11/19/17 1501 ADM IN [place] [id number] [place] [id number]
--- NOTE | ~2017-11-05 | PN ---
PATIENT:GABI TOLLIVER MEDICAL RECORD: [id number] LOCATION:JAM ReedMela112 ADMISSION DATE: 11/05/17 PROGRESS NOTE DATE OF SERVICE: 11/14/2017 SUBJECTIVE: The patient's case was discussed with staff. She has no new complaint. OBJECTIVE: The patient continues to be intrusive wanting to hug or kiss strangers. Apparently, she believes that she recognizes either her , a child, a relative, but she is always mistaken. Sometimes she becomes agitated when redirected. ASSESSMENT: No change in diagnoses. PLAN: This patient is exhibiting behaviors that are perfectly normal for her condition. They are not a direct predatory threat to anyone and the solution is not pharmacologic. I am recommending placement in a specialized dementia unit, where she can have additional supervision. At this point, her is reluctant to do that because there is no such unit in the town he lives in and he would have to be driving anywhere from half hour to an hour to see her. I understand the hardship this places on him; however, as far as helping her, that is the only thing I think I can do reasonably. I do plan to discharge her after the weekend if he does not want to follow through with this plan, but I will not accept her back unless there is some significant change in her behaviors. There is no reason to return her here when there is not anything I can do for her pharmacologically. TRANSINT:[id number] Voice Confirmation ID: [id number] DOCUMENT ID: [id number] LAMAR DURBIN MD at 1403 CC: [id number] DICTATION DATE: 11/14/17 1357 SKEIN MERCERIZING MACHINE OPERATOR: 11/14/17 1438 ADM IN [facility] [address] [place] [address]
--- NOTE | ~2017-11-05 | PN ---
PATIENT:GABI TOLLIVER MEDICAL RECORD: [id number] LOCATION:JAM Phan112 ADMISSION DATE: 11/05/17 PROGRESS NOTE DATE OF SERVICE: 11/20/2017 SUBJECTIVE: The patient's case was discussed with staff. She has no new complaint. She is intrusive and difficult to redirect. She has not been openly aggressive today. ASSESSMENT: No change in diagnoses. PLAN: The patient is going to be maintained on current medicines. I anticipate she can be discharged to the [facility] in [place] when those arrangements are made. TRANSINT:[id number] Voice Confirmation ID: [id number] DOCUMENT ID: [id number] LAMAR DURBIN MD at 1341 CC: [id number] DICTATION DATE: 11/20/17 1235 COMPUTER GRAPHICS ILLUSTRATOR: 11/20/17 1310 ADM IN [place] [id number] [place] [address]
--- NOTE | ~2017-11-05 | PN ---
PATIENT:GABI TOLLIVER MEDICAL RECORD: [id number] LOCATION:RAMAKRISHNAJasbir DerekMelaShabana ADMISSION DATE: 11/05/17 PROGRESS NOTE DATE OF SERVICE: 11/18/2017 SUBJECTIVE: The patient's case was discussed with staff. She has no new complaint. OBJECTIVE: The patient is in good behavioral control with limited insight about her condition. She tolerates her medicines well. ASSESSMENT: No change in diagnoses. PLAN: The patient is still very impaired cognitively. I anticipate she can be transitioned out of the hospital when appropriate placement is arranged. TRANSINT:[id number] Voice Confirmation ID: [id number] DOCUMENT ID: [id number] LAMAR DURBIN MD at 1344 CC: [id number] DICTATION DATE: 11/18/17 1429 PSYCH SALES SPECIALIST: 11/18/17 1448 ADM IN [facility] [address] [place] [address]
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
--- NOTE | ~2017-11-05 | PN ---
PATIENT:GABI TOLLIVER MEDICAL RECORD: [id number] LOCATION:JAM Terrell ADMISSION DATE: 11/05/17 PROGRESS NOTE DATE OF SERVICE: 11/23/2017 SUBJECTIVE: The patient's case was discussed with staff. She has no new complaint. OBJECTIVE: The patient is in good behavioral control with limited insight about her condition. She does tolerate her medicines well. ASSESSMENT: No change in diagnoses. PLAN: The patient may be transitioned out of the hospital once medically stabilized. Her long-term prognosis is guarded. TRANSINT:[id number] Voice Confirmation ID: [id number] DOCUMENT ID: [id number] LAMAR DURBIN MD at 1844 CC: [id number] DICTATION DATE: 11/23/17 1109 CHAINSTITCH SEWING MACHINE OPERATOR: 11/24/17 0050 ADM IN [place] [id number] [place] [address]
--- NOTE | ~2017-11-05 | PN ---
PATIENT:GABI TOLLIVER MEDICAL RECORD: [id number] LOCATION:DerekLUCIAJasbir PhanShabana ADMISSION DATE: 11/05/17 PROGRESS NOTE DATE OF SERVICE: 11/08/2017 SUBJECTIVE: The patient's case was discussed with staff. She has no new complaint. OBJECTIVE: The patient denies intent to harm herself or others. She generally tolerates her medicines well. Eye contact is poor. ASSESSMENT: No change in diagnoses. PLAN: Brief supportive and educational interventions were made. Alf prognosis is guarded. TRANSINT:[id number] Voice Confirmation ID: [id number] DOCUMENT ID: [id number] LAMAR DURBIN MD at 1921 CC: [id number] DICTATION DATE: 11/08/17 1410 ROLLER SKATES ASSEMBLER: 11/08/17 1426 ADM IN [facility] [address] [place] [address]
[~2017-11-05 20:41] MED LIST: ACETAMINOPHEN500 M1 PO; DEPAKENE 2250 MG/5 M PO; DEPAKOTE SPRIN125 MG PO; KLONOPIN0.5 MG PO; LINZESS145 MCG PO; LISINOPRIL10 MG PO; LOVASTATIN20 MG PO; MEGACE40 MG PO; MELATONIN 3 MG1 TAB PO; SEROQUEL25 MG PO; SYNTHROID25 MCG PO; VITAMIN D5000 UNIT PO; ZOLOFT100 MG PO
[2017-11-05] MEDS ORDERED: KLONOPIN0.5 MG PO (21:11)
[2017-11-05] MEDS ORDERED: DEPAKOTE SPRIN125 MG PO (21:12)
[2017-11-05] MEDS ORDERED: ARICEPT10 MG PO (21:18)
[2017-11-05] MEDS ORDERED: LINZESS145 MCG PO (21:19)
[2017-11-05 23:37] VITALS: BP 147/78; BMI 22.8
[2017-11-06 09:08] LABS: BASOPHILS 0.4 % (0-2); EOSINOPHILS 1.6 % (0-7); HEMATOCRIT 41.1 % (36.0-48.0); HEMOGLOBIN 13.4 g/dL (12-16); IMMATURE GRANULOCYTES 0.8 % (0-5); LYMPHOCYTES 35.4 % (15-50); MCH 31.6 pg (26.0-34.0); MCHC 32.6 g/dL (31.0-37.0); MCV 96.9 fL (80.0-100.0); MEAN PLATELET VOLUME 10.5 fL (7.4-10.4); MONOCYTES 15.3 % (2-11); NEUTROPHILS 46.5 % (40-80); RBC 4.24 10x6/uL (4.00-5.40); RDW 13.8 % (11.5-14.5); WBC 4.9 10x3/uL (4.8-10.8)
[2017-11-06 09:13] LABS: PLATELET COUNT 121 10x3/uL (130-400)
[2017-11-06 09:38] LABS: ALBUMIN 2.9 g/dL (3.4-5.0); ANION GAP 12.4 mmol/L (8-16); BILIRUBIN - TOTAL 0.54 mg/dL (0.2-1.3); CALCIUM 8.7 mg/dL (8.5-10.1); CARBON DIOXIDE 25.8 mmol/L (21.0-32.0); CHOL - HDL RATIO 4.1 ratio (2.3-4.1); CREATININE - SERUM 0.8 mg/dL (0.6-1.3); LDL-HDL RATIO 2.9 ratio (1.5-3.5); POTASSIUM - SERUM 4.2 mmol/L (3.5-5.1); PROTEIN - SERUM 6.8 g/dL (6.4-8.2); THYROID STIMULATING HORMONE 1.92 uIU/mL (0.36-3.74); VALPROIC ACID (DEPAKOTE) 40.8 ug/mL (50.0-100.0)
[2017-11-06 11:50] VITALS: BMI 22.7
[2017-11-06 12:02] VITALS: BP 130/72
[2017-11-07 02:12] VITALS: BP 130/66
[2017-11-07 06:17] LABS: RAPID PLASMA REAGIN Non Reactive (Non Reactive)
[2017-11-07 08:07] VITALS: BMI 22.5
[2017-11-07 09:20] LABS: FOLATE (FOLIC ACID) - SERUM 15.8 ng/mL (>3.0)
[2017-11-07 10:08] VITALS: BP 148/75
[2017-11-07 10:19] LABS: VITAMIN D 25 HYDROXY 51.7 ng/mL (30.0-100.0)
[2017-11-07 19:16] VITALS: BP 158/77
[2017-11-08 09:47] VITALS: BP 142/79
[2017-11-08 19:55] VITALS: BP 124/66
[2017-11-09 07:54] VITALS: BP 153/80
[2017-11-10 07:00] VITALS: BP 132/86
[2017-11-10 18:56] VITALS: BP 84/68
[2017-11-10 20:37] LABS: APPEARANCE HAZY (CLEAR); BILIRUBIN NEGATIVE (NEGATIVE); COLOR DK YELLOW (YELLOW); GLUCOSE NEGATIVE (NEGATIVE); KETONE NEGATIVE (NEGATIVE); NITRITE NEGATIVE (NEGATIVE); PROTEIN TRACE mg/dL (NEGATIVE); SPECIFIC GRAVITY 1.025 (1.005-1.020); UROBILINOGEN NORMAL (NORMAL)
[2017-11-10 20:42] LABS: AMORPHOUS SEDIMENT <1+ /lpf (NONE SEEN); BACTERIA MANY /hpf (NONE SEEN); EPITHELIAL CELLS OCC /hpf (0-5); HYALINE CAST OCC /lpf (NONE SEEN); MUCUS >1+ /lpf (NONE SEEN)
[2017-11-11 07:00] VITALS: BP 117/67
[2017-11-11 20:19] VITALS: BP 126/65
[2017-11-12 07:40] VITALS: BP 133/50
[2017-11-12 13:30] VITALS: Ht 165.1 cm; Wt 54.2 kg
[2017-11-12 19:30] VITALS: BP 127/44
[2017-11-13 07:55] VITALS: BP 118/56
[2017-11-13 20:48] VITALS: BP 106/66
[2017-11-14 08:11] VITALS: BP 146/84
[2017-11-14 20:13] VITALS: BP 146/77
[2017-11-15 10:09] VITALS: BP 118/74
[2017-11-15 21:20] VITALS: BP 105/54
[2017-11-16 12:49] VITALS: BP 112/89
[2017-11-16 21:34] VITALS: BP 119/83
[2017-11-17 07:00] VITALS: BP 115/93
[2017-11-17 21:12] VITALS: BP 120/69
[2017-11-18 07:28] VITALS: BP 126/77
[2017-11-18 21:22] VITALS: BP 123/66
[2017-11-19 09:45] VITALS: BP 109/75
[2017-11-20 08:54] VITALS: BP 145/85
[2017-11-20 20:50] VITALS: BP 119/60
[2017-11-21 08:38] VITALS: BP 110/60
[2017-11-21 22:50] VITALS: BP 116/77
[2017-11-22 09:45] VITALS: BP 111/68
[2017-11-22 19:20] VITALS: BP 107/52
[2017-11-23 09:41] VITALS: BP 133/69
[2017-11-23 20:49] VITALS: BP 128/87
[2017-11-24 07:00] VITALS: BP 147/72
[2017-11-24 19:25] VITALS: BP 107/66
[2017-11-25] MEDS ORDERED: GEODON20 MG PO (18:54)
[2017-11-25 20:09] VITALS: BP 116/63
[2017-11-26 07:00] VITALS: BP 123/53
[2017-11-26 19:57] VITALS: BP 142/69
[2017-11-27 07:27] VITALS: BP 118/56
== END 2017-11-27 14:30 | DRG 57 ==
LOC: D.PSYCH 20:41
PROVIDERS: Psychiatry & Neurology Psychiatry
DX: G30.1 Alzheimer's disease with late onset (principal); F02.81 Dementia in other diseases classified elsewhere, unspecified severity, with behavioral disturbance; E78.5 Hyperlipidemia, unspecified; Z86.73 Personal history of transient ischemic attack (TIA), and cerebral infarction without residual deficits; I10 Essential (primary) hypertension; E03.9 Hypothyroidism, unspecified; F41.9 Anxiety disorder, unspecified; F32.9 Major depressive disorder, single episode, unspecified; E55.9 Vitamin D deficiency, unspecified; K59.00 Constipation, unspecified; R63.0 Anorexia; Z68.22 Body mass index [BMI] 22.0-22.9, adult

== ENCOUNTER → 2019-01-09 16:09 | Outpatient (CLI) | payer MEDICAID ==
[2017-11-12 13:30] VITALS: BMI 19.8
[~2019-01-09 16:09] MED LIST changes: +ARICEPT10 MG PO; +GEODON20 MG PO
== END | disposition home or self-care (01) ==
LOC: D.CT 16:00
PROVIDERS: ATTEND Legal Medicine
DX: R93.89 Abnormal findings on diagnostic imaging of other specified body structures (principal)

== ENCOUNTER 2019-01-17 16:53 | Inpatient (IN) | payer MEDICARE ==
[~2019-01-17] VITALS: Ht 165.1 cm; Wt 53.2 kg
--- NOTE | ~2019-01-17 | PN ---
PATIENT:GABI TOLLIVER MEDICAL RECORD: [id number] LOCATION:DerekMICHELLE Terrell ADMISSION DATE: 01/17/19 PROGRESS NOTE DATE OF SERVICE: 01/24/2019 SUBJECTIVE: Ms. Tolliver is a 78-year-old female who was admitted due to aggression, verbal and physical according to nursing facility. The patient seems to go on and off with this behavior, none reported in the last 24 hours, but she can certainly become especially verbally aggressive, demanding other patients get out of chairs, etc. On the , Depakote level was done, but it was not done trough; levels being redone today, is pending. On interview, the patient is irritable, little sarcastic. She is just waking up. She slept 8.25 hours, eating 25% at all meals. Last bowel movement on . OBJECTIVE: LATEST VITAL SIGNS: 99.3, 61, 20, 135/75 and 96%. ASSESSMENT: Unchanged. PLAN: We will await Depakote trough level, apparently getting her medicines down on her is a major ordeal. We will try to continue to find some methods to go about this as I think may the inconsistencies has probably fueled a lot of the patient's aggressive behavior. Case discussed with nursing, chart reviewed and the patient interviewed. TRANSINT:[id number] Voice Confirmation ID: [id number] DOCUMENT ID: [id number] KVNG RAND MD CC: [id number] DICTATION DATE: 01/24/19 0743 REGIONAL OPERATIONS MANAGER: 01/24/19 1430 ADM IN [place] [id number] [place] [id number]
--- NOTE | 2019-01-17 17:10 | NUR ---
PACING ABOUT DAYROOM/DINING ROOM, QUITE RESTLESS. NO RESPECT FOR THE PERSONAL SPACE OF OTHERS.
--- NOTE | 2019-01-17 17:20 | NUR ---
Called the patient's spouse and asked him for a verbal consent for treatment he said "Yes, it's fine, she's been there before and I am familiar with how things run there." Did get a verbal consent for treatment and care, he verbalizes understanding. Received a code word of "Red" it is her favorite color. He wishes to continue her DNR code status. Did a physical assessment on her and she has no miner or bruises. She does have some tremors in her hands and she has some slight tardive dyskanesia movement in her mouth jaw area and makes a frequent "slurp" sound between her teeth.
[2019-01-17 17:25] VITALS: BP 128/83; BMI 19.4
--- NOTE | 2019-01-17 17:34 | NUR ---
SITTING IN CHAIR, SQUIRMING OCCASIONALLY. UNUSUAL MOVEMENTS NOTED.
[2019-01-17] MEDS ORDERED: TENORMIN25 MG PO (18:02)
[2019-01-17] MEDS ORDERED: DONEPEZIL HCL10 MG PO (18:02)
[2019-01-17] MEDS ORDERED: MIRALAX17 GM PO (18:07)
[2019-01-17] MEDS ORDERED: PROMOD LIQUID P30 M1 PO (18:08)
[2019-01-17] MEDS ORDERED: REMERON15 MG PO (18:12)
[2019-01-17] MEDS ORDERED: ZOCOR40 MG PO (18:15)
[2019-01-17] MEDS ORDERED: VITAMIN D31000 UNIT PO (18:18)
[2019-01-17] MEDS ORDERED: NAMENDA10 MG PO (19:01)
[2019-01-17] MEDS ORDERED: DEPAKOTE250 MG PO (19:02)
[2019-01-17] MEDS ORDERED: DEPAKOTE125 MG PO (19:06)
[2019-01-17] MEDS ORDERED: ACETAMINOPHEN325 MG PO (19:07)
[2019-01-17] MEDS ORDERED: IBUPROFEN400 MG PO (19:08)
[2019-01-17] MEDS ORDERED: MELATONIN 3 MG1 TAB PO (19:09)
[2019-01-17] MEDS ORDERED: MILK OF MAGNESI30 ML PO (19:09)
[2019-01-17] MEDS ORDERED: MYLANTA / MAALO30 ML PO (19:10)
[2019-01-17 20:07] VITALS: BP 106/71
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
[2019-01-18 06:42] LABS: BASOPHILS 0.5 % (0-2); EOSINOPHILS 2.3 % (0-7); HEMATOCRIT 43.4 % (36.0-48.0); HEMOGLOBIN 14.6 g/dL (12-16); IMMATURE GRANULOCYTES 0.2 % (0-5); LYMPHOCYTES 34.1 % (15-50); MCH 32.4 pg (26.0-34.0); MCHC 33.6 g/dL (31.0-37.0); MCV 96.4 fL (80.0-100.0); MEAN PLATELET VOLUME 10.4 fL (7.4-10.4); MONOCYTES 11.9 % (2-11); RDW 13.8 % (11.5-14.5); WBC 6.5 10x3/uL (4.8-10.8)
[2019-01-18 06:43] LABS: PLATELET COUNT 122 10x3/uL (130-400)
[2019-01-18 07:10] LABS: ALBUMIN 2.9 g/dL (3.4-5.0); BILIRUBIN - TOTAL 0.74 mg/dL (0.2-1.3); CARBON DIOXIDE 25.2 mmol/L (21.0-32.0); CHOL - HDL RATIO 2.4 ratio (2.3-4.1); CREATININE - SERUM 1.1 mg/dL (0.6-1.3); LDL-HDL RATIO 1.2 ratio (1.5-3.5); POTASSIUM - SERUM 4.2 mmol/L (3.5-5.1); PROTEIN - SERUM 6.7 g/dL (6.4-8.2); THYROID STIMULATING HORMONE 1.92 uIU/mL (0.36-3.74); VALPROIC ACID (DEPAKOTE) 35.9 ug/mL (50.0-100.0)
--- NOTE | 2019-01-18 10:00 | NUR ---
RECEIVED PATIENT IN DINING ROOM FOR B'FAST, ALERT, RESTLESS, PACES ABOUT UNIT, LABILE MOOD. MEDS ADMIN PER ORDERS WITH COMPLETE MED COMPLIANCE NOTED. COOPERATIVE WITH GROUP ACTIVITY AND STAFF REQUESTS. CONT POC INCLUDING MEDS AND GROUP ACTIVITY DIRECTED.
[2019-01-18 19:59] VITALS: BP 173/108
--- NOTE | 2019-01-18 20:50 | NUR ---
PATIENT IS CONFUSED, AIMLESSLY WALKS AROUND, DOES NOT MAKE NEEDS KNOWN, DOES NOT INTERACT WELL AT ALL WITH OTHERS, NO INSIGHT, MEDS AREN'T IN PYXIS, WILL FOLLOW POC
[2019-01-19 08:29] VITALS: BP 100/76
--- NOTE | 2019-01-19 10:10 | NUR ---
PATIENT IS AWAKE AND CONFUSED. SHE AMBULATES INDEPENDENTLY AND WANDER AROUND UNIT. HER HANDS HAVE A TREMOR MOVEMENT. CALM AND COOPERATIVE WITH CARE AND ASSESSMENT. SHE IS DIFFICULT TO REDIRECT, AND STARTS CURSING AT STAFF. MEDICATION COMPLIANT CRUSHED IN APPLESAUCE. REDIRECT AND REORIENT NEEDED. WILL CONTINUE PLAN OF CARE.
[2019-01-19 10:32] VITALS: BMI 19.1
[2019-01-19 22:23] VITALS: BP 183/99
--- NOTE | 2019-01-19 22:49 | NUR ---
RECEIVED IN HALLWAY OUTSIDE OF NURSES STATION. WANDERING AROUND. CONFUSED. TAKING OF CLOTHES IN HALLWAY. CALM AND COOPERATIVE WITH CARE AND ASSESSMENT. NO AGGRESSIVE BEHAVIORS. REDIRECT AND REORIENT NEEDED. CONTINUES TO WANDER HALLS AT THIS TIME. CONTINUE PLAN OF CARE.
--- NOTE | 2019-01-20 07:30 | NUR ---
PT IS ALERT TO PERSON ONLY. PT IS VERY CONFUSED. CALM AND COOPERATIVE WITH ASSESSMENT. REDIRECT AND REORIENT NEEDED. MED COMPLIANT. FALL PRECAUTIONS IN PLACE. WILL CPOC.
[2019-01-20 08:00] VITALS: BP 146/79
[2019-01-20 09:44] VITALS: Ht 165.1 cm; Wt 53.2 kg
--- NOTE | 2019-01-20 16:49 | PSY ---
PATIENT NAME:GABI TOLLIVER MEDICAL RECORD: [id number] : 42 LOCATION:DerekMelaMARCELO Xander6 ADMISSION DATE: 01/17/19 ACCOUNT: [id number] PSYCHIATRIC EVALUATION DATE OF EVALUATION: 01/19/19 HISTORY OF PRESENT ILLNESS: The patient is a 78-year-old female, a resident of [facility] who was last here on October of this year for similar symptomatology of being aggressive, requiring one on one and that she is physically and verbally aggressive with others, not responding to redirection, nursing reports that she is frequently disruptive and makes inappropriate and comments with foul language. On my interview, the patient was simply irritated. I would ask questions, she could answer who she was, but asked where she was and why she was here, she would simply scowl and give me a confabulated answer. She does not voice suicidal or homicidal ideation, auditory or visual hallucinations or delusions. PAST PSYCHIATRIC HISTORY: Again, by report, she has had multiple admissions here and her last in October of this year as well as other by report psychiatric facilities. PAST MEDICAL HISTORY: Per longterm report, essential hypertension, hypothyroidism, vitamin D deficiency, muscle weakness, aphasia, constipation, unspecified heart failure, hemoptysis. Some difficulty in ambulation and insomnia. MEDICATIONS: As follows, Linzess 145 mcg 1 p.o. every day, Synthroid 25 mcg 1 p.o. every day, Geodon 20 mg b.i.d., Zocor 40 mg at bedtime, Remeron 15 mg at bedtime, Namenda 10 mg b.i.d., Aricept 10 mg at bedtime, Depakote 625 t.i.d., melatonin 3 mg at bedtime p.r.n., vitamin D looks as if it is 6000 units a day, atenolol 25 mg a day. SOCIAL HISTORY: She is a resident at [facility], a local nursing facility, she got a POA, her , Rodger Tolliver. She states she has 3 children and unsure about her social history. FAMILY HISTORY: Unknown at this point. DRUG AND ALCOHOL: The patient not currently abusing substances. MENTAL STATUS EXAMINATION: GENERAL: This is a 78-year-old female, in hospital attire. She is semicooperative with interview at best, for questions that she does not know, which is most of the time she is irritable and blunt. She after my interview was over and I was interviewing other people came to me grabbed my arm and said, "lets go, lets go, lets go." SPEECH: Regular rate and rhythm. MOOD: Not directly laced with affect. AFFECT: Irritable. THOUGHT PROCESS: Irrational, irrelevant frequently, and nongoal directed. THOUGHT CONTENT: She does not voice suicidal or homicidal ideation, auditory or visual hallucinations or delusions. COGNITIVE EXAM: She is alert and oriented times 1 only. STRENGTH: She is ambulatory and has family support. WEAKNESSES: Advanced neurocognitive issues. IMPRESSION: Advanced major neurocognitive disorder, probable Alzheimer's type with behavioral disturbances and history of insomnia as well as histories of dysthymic disorder. PLAN: We will admit to halfway. We will continue her current meds. Note, she is on a large dose of Depakote, although her Depakote level was just 39.5. Suspect they have a hard time getting her to comply with medications frequently. Last Depakote level was yesterday on the . Considering medications were restarted, we will get another level in a few days to see what her closest possible true level is on her current Depakote dosing. We will continue to monitor for aggression or agitation. Case discussed with nursing, chart reviewed, and the patient interviewed. TRANSINT:[id number] Voice Confirmation ID: [id number] DOCUMENT ID: [id number] KVNG RAND MD at 1649 CC: [id number] DICTATION DATE: 01/19/19 183 HAND SLITTER: 01/19/19 2341 ADM IN [place] [id number] [place] [address]
[2019-01-20 19:48] VITALS: BP 143/50
--- NOTE | 2019-01-20 21:49 | NUR ---
RECEIVED IN HALLWAY. RESTING QUIETLY IN A CHAIR OUTSIDE OF NURSES STATION. CONFUSED. REDIRECT AND REORIENT NEEDED. CONTINUES TO REST QUIETLY. CONTINUE PLAN OF CARE
--- NOTE | 2019-01-21 07:30 | NUR ---
REC'D PT PACING HALLWAY BY NURSES STATION. PT IS ALERT AND VERY CONFUSED. WANDERS WITHA BLANK STARE. CALM AND COOPERATIVE WITH ASSESSMENT. MED COMPLIANT. REDIRECT AND REORIENT NEEDED. PT CAN BECOME AGGRESSIVE WITH SUKHI CARE AND REDIRECTION. FALL PRECAUTIONS IN PLACE. PT BEHAVIOR IS PLEASANTLY CONFUSED THIS MORNING. WILL CPOC.
[2019-01-21 07:42] VITALS: BP 143/74
[2019-01-21 11:13] LABS: FOLATE (FOLIC ACID) - SERUM >20.0 ng/mL (>3.0)
[2019-01-21 20:00] VITALS: BP 130/55
--- NOTE | 2019-01-21 23:07 | NUR ---
RECEIVED IN HALLWAY OUTSIDE OF NURSES STATION. RESTING IN RECLINER WITH EYES OPEN. CALM AND COOPERATIVE WITH CARE AND ASSESSMENT. NO AGGRESSIVE BEHAVIORS. REDIRECT AND REORIENT NEEDED. RESTING IN BED WITH EYES CLOSED AT THIS TIME. CONTINUE PLAN OF CARE.
[2019-01-22 08:02] VITALS: BP 165/67
--- NOTE | 2019-01-22 10:00 | NUR ---
RECEIVED IN DINING ROOM FOR B'FAST, ALERT, RESTLESS, APPETITE FAIR. NO AGGRESSION NOTED AT THIS TIME. MEDS ADMIN PER ORDERS. MEDS CRUSHED AND MIXED WITH PUDDING. PT MED COMPLIANT. COOPERATIVE WITH STAFF AND GROUP THERAPY. CONT POC INCLUDING MEDS AND GROUP THERAPY DIRECTED.
--- NOTE | 2019-01-22 13:00 | NUR ---
ATIVAN 0.5 MG ADMIN IM FOR AGGRESSION TOWARDS OTHER PATIENTS.
--- NOTE | 2019-01-22 14:29 | NUR ---
RESTING QUIETLY IN RECLINER. NO FURTHER AGGRESSIVE EPOSODES.
--- NOTE | 2019-01-22 14:47 | NUR ---
AUDITORY HALLUCINATIONS NOTED.
[2019-01-22 20:20] VITALS: BP 130/65
--- NOTE | 2019-01-22 21:54 | NUR ---
B) Patient is alert and oriented to person, calm and cooperative this shift , impatient at times, I) Adminsitered scheduled medications as ordered, monitored for safety and for needs, R) Mediation compliant, resting in bed now, P) Continue plan of care.
[2019-01-23 07:38] VITALS: BP 134/64
[2019-01-23 20:00] VITALS: BP 135/75
--- NOTE | 2019-01-23 22:57 | NUR ---
B) Patient is alert and oriented to person and place, calm and cooperative this shaift, I) Administered schedled medications as ordered, monitored for safety, R) mediation compliant, pleasant and friendly toward staff, P) Continue plan of care.
[2019-01-24 08:04] LABS: BASOPHILS 0.3 % (0-2); EOSINOPHILS 2.2 % (0-7); HEMATOCRIT 47.1 % (36.0-48.0); HEMOGLOBIN 15.8 g/dL (12-16); IMMATURE GRANULOCYTES 0.4 % (0-5); LYMPHOCYTES 29.3 % (15-50); MCH 32.4 pg (26.0-34.0); MCHC 33.5 g/dL (31.0-37.0); MCV 96.5 fL (80.0-100.0); MEAN PLATELET VOLUME 10.6 fL (7.4-10.4); MONOCYTES 11.2 % (2-11); NEUTROPHILS 56.6 % (40-80); PLATELET COUNT 139 10x3/uL (130-400); RBC 4.88 10x6/uL (4.00-5.40); RDW 13.7 % (11.5-14.5); WBC 7.1 10x3/uL (4.8-10.8)
[2019-01-24 08:42] VITALS: BP 121/64
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
--- NOTE | 2019-01-24 08:48 | PN ---
PATIENT:GABI TOLLIVER MEDICAL RECORD: [id number] LOCATION:JAM PhanShabana ADMISSION DATE: 01/17/19 PROGRESS NOTE DATE OF SERVICE: 01/22/2019 SUBJECTIVE: Ms. Tolliver is a 78-year-old female with advanced major neurocognitive disorder. She has had several good days, but today she has been ordering people out of their chairs, bullying them around, verbally aggressive, particularly with her peers. On interview, the patient again was slightly irritable, but not aggressive and very confused. Her latest vitals are 97.2, 66, 18, 165/67, 97%. Nursing notes that different methods are required to get her medications down her and there does not seem to be an absolute pattern. Sometimes they had to be crushed, sometimes she can take them whole. This morning, they had to be crushed, which I suspect is contributing to such low medication levels despite high doses of Depakote. ASSESSMENT: Unchanged. PLAN: We will get Depakote trough level tomorrow morning. We will continue to monitor for aggressive behaviors. We will consider increasing Geodon if absolutely necessary. Case discussed with nursing. Chart reviewed. The patient interviewed. TRANSINT:[id number] Voice Confirmation ID: [id number] DOCUMENT ID: [id number] KVNG RAND MD at 0848 CC: [id number] DICTATION DATE: 01/22/19 1218 VESSEL SCRAPPER HELPER: 01/22/19 1243 ADM IN [place] [address] [place] [address]
--- NOTE | 2019-01-24 08:48 | PN ---
PATIENT:GABI TOLLIVER MEDICAL RECORD: [id number] LOCATION:JAM PhanShabana ADMISSION DATE: 01/17/19 PROGRESS NOTE DATE OF SERVICE: 01/21/2019 SUBJECTIVE: Ms. Tolliver is 78-year-old female who was admitted after becoming very aggressive at [facility] verbally and physically with staff and peers. Nursing notes that the patient is getting gradually decreasing her aggressive behaviors. She was somewhat verbally aggressive today, but apparently has not been physically so. On interview, she is confused, but not as quite as irritable or combative as the first day. She slept 8.75 hours, eating 100%, 100%, and 50%. Bowel movement is still unclear. She is ambulatory and nursing feels like she is finding the bathroom on her own. OBJECTIVE: LATEST VITAL SIGNS: Temperature 97.5, pulse 55, respirations 18, blood pressure 143/74, and saturation 96%. ASSESSMENT: Unchanged. PLAN: She has been back on what was reported to be her Depakote dosing from the here. In 1-2 days, we will have full pharmacological half-life, we will reget the trough level to see how accurate the previous level was on this dose. I suspect they were having trouble getting meds down her at the longterm here. They have to alternate between given her home meds and crushing based on how she is doing. But if that be the case, we will make sure nursing gives facility very specific instructions on how they are managing to do that here. Case discussed with nursing, chart reviewed and the patient interview. TRANSINT:[id number] Voice Confirmation ID: [id number] DOCUMENT ID: [id number] KVNG RAND MD at 0848 CC: [id number] DICTATION DATE: 01/21/19 180 BROOMCORN THRESHER: 01/22/19 1014 ADM IN [facility] [address] [place] [address]
--- NOTE | 2019-01-24 08:49 | PN ---
PATIENT:GABI TOLLIVER MEDICAL RECORD: [id number] LOCATION:JAM Phan112 ADMISSION DATE: 01/17/19 PROGRESS NOTE DATE OF SERVICE: 01/23/2019 SUBJECTIVE: Ms. Tolliver is a 78-year-old female resident of [facility], who had been aggressive at [facility] verbally and physically with her peers and staff there. She had required p.r.n.s on the secondary to aggression. Today, she is somewhat sedated. She received 0.5 mg of Ativan. Her Depakote level was 85.7, however, noted it was at 1355 that certainly not being trough. Her intro platelet count was 122. She slept 8.25 plus hours. Again, she is asleep today. Eating 75/20 and 25%. Last bowel movement on the . OBJECTIVE: VITAL SIGNS: 97.7, 56, 16, 134/64, and 95%. ASSESSMENT: Unchanged. PLAN: We will try to get a trough Depakote level tomorrow as well as a repeat CBC to check the platelets. We will continue to monitor for aggression and try to find the best balance between behavioral control and sedation. It appears that even small amounts of Ativan are quite sedating for her. Case discussed with nursing, chart reviewed. The patient interviewed. TRANSINT:[id number] Voice Confirmation ID: [id number] DOCUMENT ID: [id number] KVNG RAND MD at 0849 CC: [id number] DICTATION DATE: 01/23/19 1418 VISUAL EDUCATION DIRECTOR: 01/23/19 1519 ADM IN [place] [id number] [place] [address]
--- NOTE | 2019-01-24 09:00 | NUR ---
REC'D PT SITTING IN RECLINER CHAIR WITH EYES CLOSED. RESP EVEN AND NONLABORED. NO ACUTE DISTRESS NOTED. PT CAN AMBULATE BUT IS UNSTEADY. CHAIR ALARM IN PLACE AND ACTIVE. MED COMPLIANT. WILL CONT PLAN OF CARE. WILL CONT TO MONITOR Q 15 MINS FOR SAFETY.
--- NOTE | 2019-01-24 14:00 | NUR ---
Obtained a small amount of urine for a UA and culture.
[2019-01-24 14:58] LABS: APPEARANCE HAZY (CLEAR); BILIRUBIN NEGATIVE (NEGATIVE); COLOR YELLOW (YELLOW); GLUCOSE NEGATIVE (NEGATIVE); KETONE SMALL mg/dL (NEGATIVE); NITRITE NEGATIVE (NEGATIVE); PROTEIN 1+ mg/dL (NEGATIVE); UROBILINOGEN NORMAL (NORMAL)
[2019-01-24 14:59] LABS: RED CELLS - URINE OCC /hpf (0-5); WHITE CELLS - URINE OCC /hpf (0-5)
--- NOTE | 2019-01-24 18:34 | NUR ---
PATIENT SITTING AT THE TABLE WATCHING T.V. RESP EVEN AND NONLABORED. NO ACUTE DISTRESS NOTED. MED COMPLIANT THIS SHIFT. PT CAN MOVE SELF IN THE CHAIR. CHAIR ALARM IN PLACE AND ACTIVE. NO BEHAVIORS NOTED THIS SHIFT. DID GET A SMALL AMOUNT OF URINE FOR U/A. WILL CONT PLAN OF CARE. WILL CONT TO MONTIOR Q 15 MINS FOR SAFETY.
[2019-01-24 20:21] VITALS: BP 138/61
--- NOTE | 2019-01-25 07:10 | NUR ---
REC'D PT SITTING IN CHAIR WITH EYES CLOSED. RESP EVEN AND NONLABORED. NO ACUTE DISTRESS NOTED. MED COMPLIANT. NO BEHAVIORS NOTED. CHAIR ALARM ON AND ACTIVE. WILL CONT PLAN OF CARE.
[2019-01-25 08:00] VITALS: BP 141/86
--- NOTE | 2019-01-25 17:53 | NUR ---
PATIENT SITTING IN CHAIR IN DAY ROOM. RESP EVEN AND NONLABORED. NO ACUTE DISTRESS NOTED. MED COMPLIANT. NEW ORDERS THIS SHIFT. PT TOOK NEW MEDICATION NO PROBLEM. CHAIR ALARM IN PLACE AND ACTIVE. NO BEHAVIORS NOTED THIS SHIFT. PT MEALS THIS SHIFT. WILL CONT PLAN OF CARE. WILL CONT TO MONITOR Q 15 MINS FOR SAFETY.
--- NOTE | 2019-01-25 21:05 | NUR ---
RECEIVED IN DAYROOM. SITTING IN A CHAIR WITH PEERS AT HER SIDE. CALM AND COOPERATIVE WITH CARE AND ASSESSMENT. NO SIGNS OF AGGRESSION. REDIRECT AND REOPRIENT NEEDED. CONTINUES TO SIT QUIETLY. CONTNUE PLAN OF CARE
[2019-01-25 23:51] VITALS: BP 113/93
--- NOTE | 2019-01-26 07:30 | NUR ---
PT IS ALERT AND ORIENTED TO PERSON. CALM AND COOPERATIVE WITH ASSESSMENT AT THIS TIME. REDIRECT AND REORIENT NEEDED. MED COMPLIANT. PT YELLS OUT AT STAFF RANDOMLY FOR NO REASON. PT. CAN BECOME COMBATIVE WITH REDIRECTION AND CARE. FALL PRECAUTIONS IN PLACE. WILL CPOC.
--- NOTE | 2019-01-26 10:11 | NUR ---
Nutrition follow up: Regular diet with 50% average po intake past 3 days; intake varies Pt was started on Megace Pt ate 75-95% of meals yesterday RD following per protocol
--- NOTE | 2019-01-26 14:53 | PN ---
PATIENT:GABI TOLLIVER MEDICAL RECORD: [id number] LOCATION:JAM Terrell ADMISSION DATE: 01/17/19 PROGRESS NOTE DATE OF SERVICE: 01/25/2019 SUBJECTIVE: The patient's case was discussed with staff. She has no new complaint. OBJECTIVE: The patient is in good behavioral control. She has limited insight about her condition. She is tolerating her medicines well. ASSESSMENT: Senile dementia of the Alzheimer's type with behavioral disturbances. PLAN: The patient will be taken off of Remeron, which is antihistaminic. Hopefully, she will have some improvement in her cognition that will be observed after that is discontinued. TRANSINT:[id number] Voice Confirmation ID: [id number] DOCUMENT ID: [id number] LAMAR DURBIN MD at 1453 CC: [id number] DICTATION DATE: 01/25/19 1543 ELECTRICAL INTERN: 01/25/19 1640 ADM IN [facility] [address] [place] [address]
[2019-01-26 20:06] VITALS: BP 116/51
--- NOTE | 2019-01-27 04:17 | NUR ---
RECEIVED IN DAYROOM. RESTING IN RECLINER WITH EYES OPEN. CALM AND COOPERATIVE WITH CARE AND ASSESSMENT. NO AGGRESSIVE BEHAVIORS. REDIRECT AND REORIENT NEEDED. RESTING IN BED WITH EYES CLOSED AT THIS TIME. CONTINUE PLAN OF CARE.
--- NOTE | 2019-01-27 07:30 | NUR ---
REC'D PT IN BED WITH EYES OPEN. RESPONDS TO VERBAL STIMULI. ALERT AND ORIENTED TO PERSON ONLY. PT CALM AND COOPERATIVE WITH ASSESSMENT AT THIS TIME. PT YELLS OUT AT STAFF AND OTHER PTS FOR NO REASON. REDIRECT AND REORIENT NEEDED. MED COMPLIANT. FALL PRECAUTIONS IN PLACE. WILL CPOC.
[2019-01-27 08:32] VITALS: BP 122/79
--- NOTE | 2019-01-27 15:05 | PN ---
PATIENT:GABI TOLLIVER MEDICAL RECORD: [id number] LOCATION:JAM Terrell ADMISSION DATE: 01/17/19 PROGRESS NOTE DATE OF SERVICE: 01/26/2019 SUBJECTIVE: The patient's case was discussed with staff. She has no new complaint. OBJECTIVE: The patient denies intent to harm herself or others. She tolerates her medicines well. ASSESSMENT: Senile dementia of the Alzheimer's type with behavioral disturbances. PLAN: The patient is receiving Megace and it does seem to have helped with her oral intake. She has a normal or euthymic thyroid function, which is encouraging. She is tolerating her other medications well and at this point, she is receiving 40 mg a day of Geodon. I am going to try to reduce that slightly and I am also going to check a Depakote level. TRANSINT:[id number] Voice Confirmation ID: [id number] DOCUMENT ID: [id number] LAMAR DURBIN MD at 1505 CC: [id number] DICTATION DATE: 01/26/19 1519 EXCHANGE CLERK: 01/26/19 1528 ADM IN [place] [id number] [place] [address]
--- NOTE | 2019-01-27 21:06 | NUR ---
RECEIVED IN DAYROOM. SITTING WITH PEERS AT HER SIDE. CALM AND COOPERATIVE WITH CARE AND ASSESSMENT. NO SIGNS OF AGGRESSION. REDIRECT AND REORIENT NEEDED. RESTING IN CHAIR OUTSIDE OF NURSES STATION. CONTINUE PLAN OF CARE
[2019-01-28 08:31] VITALS: BP 148/61
--- NOTE | 2019-01-28 10:00 | NUR ---
RECEIVED PATIENT IN DINING ROOM FOR B'FAST, DROWSY, CONFUSED, NO AGGRESSION NOTED. MEDS ADMIN PER ORDERS WITH COMPLETE MED COMPLIANCE NOTED. ASLEEP DURING GROUP ACTIVITY. CONT POC DIRECTED.
--- NOTE | 2019-01-28 13:17 | PN ---
PATIENT:GABI TOLLIVER MEDICAL RECORD: [id number] LOCATION:DerekLUCIAJasbir PhanShabana ADMISSION DATE: 01/17/19 PROGRESS NOTE DATE OF SERVICE: 01/27/2019 SUBJECTIVE: The patient's case was discussed with staff. She has no new complaint. OBJECTIVE: The patient is in good behavioral control. She has limited insight about her condition. She is tolerating her medicines well. She has a therapeutic Depakote level of 80. She has no evidence of medication side effects. ASSESSMENT: Senile dementia of the Alzheimer's type with behavioral disturbances. PLAN: Current medicines and therapies have been reviewed. I am going to maintain her on current medications. TRANSINT:[id number] Voice Confirmation ID: [id number] DOCUMENT ID: [id number] LAMAR DURBIN MD at 1317 CC: [id number] DICTATION DATE: 01/27/19 1552 INSTRUCTOR PRODUCT INSPECTION: 01/27/19 1558 ADM IN [id number] [place] [address]
--- NOTE | 2019-01-28 19:40 | NUR ---
RECEIVED IN HALLWAY OUTSIDE OF NURSES STATION. RESTING IN RECLINER WITH EYES OPEN. CALM AND COOPERATIVE WITH CARE AND ASSESSMENT. NO AGGRESSIVE BEHAVIORS. REDIRECT AND REORIENT NEEDED. RESTING IN BED WITH EYES OPEN AT THIS TIME. CONTINUE PLAN OF CARE.
--- NOTE | 2019-01-29 07:36 | NUR ---
REC'D PT LAYING IN BED WITH EYES CLOSED. RESP EVEN AND NONLABORED. NO ACUTE DISTRESS NOTED. NO AGGRESSIVE BEHAVIORS NOTED FROM PREVIOUS SHIFT. BED ALARM IN PLACE AND ACTIVE. PT TO GET UP FOR BREAKFAST. WILL CONT PLAN OF CARE.
--- NOTE | 2019-01-29 18:06 | NUR ---
PATIENT SITTING IN WHEELCHAIR. RESP EVEN AND NONLABORED. NO ACUTE DISTRESS NOTED. MED COMPLIANT. NO BEHAVIORS NOTED THIS SHIFT. PATIENT AMBULATES WITH ASSISTANCE. CHAIR ALARM IN PLACE AND ACTIVE. WILL CONT PLAN OF CARE.
--- NOTE | 2019-01-30 01:26 | NUR ---
B) patient is alert and oriented to person and place, calm and cooperative this shift, I) Administered scheduled medications as ordered, monitored for safety R) Mediation compliant, pleasant friendly toward staff this shift, P) Continue plan of care.
[2019-01-30 09:21] VITALS: BP 145/52
--- NOTE | 2019-01-30 14:15 | PN ---
PATIENT:GABI TOLLIVER MEDICAL RECORD: [id number] LOCATION:JAM Terrell ADMISSION DATE: 01/17/19 PROGRESS NOTE DATE OF SERVICE: 01/28/2019 SUBJECTIVE: The patient's case was discussed with staff. She has no new complaint. OBJECTIVE: The patient is tolerating her medicines well. She has had no aggressive behavior. She is impaired cognitively. ASSESSMENT: Senile dementia of the Alzheimer's type with behavioral disturbances. PLAN: I anticipate the patient can be transitioned back to the prison soon. Her long-term prognosis is guarded. TRANSINT:[id number] Voice Confirmation ID: [id number] DOCUMENT ID: [id number] LAMAR DURBIN MD at 1415 CC: [id number] DICTATION DATE: 01/28/19 165 HEALTH SERVICE COORDINATOR: 01/28/19 2203 ADM IN [facility] [address] [place] [id number]
--- NOTE | 2019-01-30 14:15 | PN ---
PATIENT:GABI TOLLIVER MEDICAL RECORD: [id number] LOCATION:RAMAKRISHNAJasbir DerekMelaShabana ADMISSION DATE: 01/17/19 PROGRESS NOTE DATE OF SERVICE: 01/29/2019 SUBJECTIVE: The patient's case was discussed with staff. She has no new complaint. OBJECTIVE: The patient denies intent to harm herself or others. She is tolerating her medicines well. Eye contact is poor. Concentration is poor. ASSESSMENT: Senile dementia of the Alzheimer's type with behavioral disturbances. PLAN: Current medicines have been reviewed and will be maintained. Her long-term prognosis is guarded. Brief supportive and educational interventions were made. TRANSINT:[id number] Voice Confirmation ID: [id number] DOCUMENT ID: [id number] LAMAR DURBIN MD at 1415 CC: [id number] DICTATION DATE: 01/29/19 1534 CHROME PLATER: 01/29/192024 ADM IN [id number] [place] [address]
--- NOTE | 2019-01-30 16:45 | NUR ---
CONFUSED AND DISORIENTED.COMPLIANT WITH STAFF AND MEDS.NO AGGRESSION OBSERVED.REQUIRES SPOON FEEDING PER STAFF,OTHERWISE WILL JUST SIT AND LOOK AT FOOD.WILL CONTINUE WITH PLAN OF CARE,MONITOR FOR SAFETY AND CHANGES.
[2019-01-30 20:00] VITALS: BP 150/50
--- NOTE | 2019-01-30 23:00 | NUR ---
PATIENT IS CONFUSED, DOES NOT VOICE NEEDS OR CONCERNS, COMPLIANT WITH CARE BUT CAN BECOME VERBALLY AGGRESSIVE AT TIMES DURING PM CARE. NO ADVERSE REACTION NOTED. WILL FOLLOW POC
[2019-01-31 08:08] VITALS: BP 122/86
[2019-01-31 09:29] VITALS: BP 122/86
--- NOTE | 2019-01-31 09:38 | NUR ---
RECEIVED PATIENT IN DINING ROOM FOR B'FAST, ALERT, CALM, COOPERATIVE, FLAT AFFECT, CONFUSED. NO AGGRESSION NOTED. MEDS ADMIN PER ORDERS WITH COMPLETE MED COMPLIANCE NOTED. COOPERATIVE WITH CARE, GROUP ACTIVITY, AND STAFF REQUESTS. CONT POC INCLUDING MEDS AND GROUP THERAPY DIRECTED, OBSERVING FOR AGGRESSION.
--- NOTE | 2019-01-31 10:36 | PN ---
PATIENT:GABI TOLLIVER MEDICAL RECORD: [id number] LOCATION:RAMAKRISHNAJasbir DerekMelaShabana ADMISSION DATE: 01/17/19 PROGRESS NOTE DATE OF SERVICE: 01/30/2019 SUBJECTIVE: The patient's case was discussed with staff. She has no new complaint. OBJECTIVE: The patient is in good behavioral control. She has pretty limited insight about her situation. She has a therapeutic Depakote level. ASSESSMENT: Vascular dementia. PLAN: Current medicines have been reviewed and will be maintained. Long-term prognosis is guarded. TRANSINT:[id number] Voice Confirmation ID: [id number] DOCUMENT ID: [id number] LAMAR DURBIN MD at 1036 CC: [id number] DICTATION DATE: 01/30/19 1548 SSN/SSBN WEAPONS EQUIPMENT OPERATOR: 01/30/19 2222 ADM IN [id number] [place] [address]
[2019-01-31 20:00] VITALS: BP 110/69
[2019-02-01 07:00] VITALS: BP 113/62
--- NOTE | 2019-02-01 09:40 | PN ---
PATIENT:GABI TOLLIVER MEDICAL RECORD: [id number] LOCATION:JAM ReedMelaShabana ADMISSION DATE: 01/17/19 PROGRESS NOTE DATE OF SERVICE: 01/31/2019 SUBJECTIVE: The patient's case was discussed with staff. She has no new complaint. OBJECTIVE: The patient has not been aggressive. She is significantly disorganized. ASSESSMENT: Vascular dementia. PLAN: Supportive and educational interventions were made. The patient is very limited in her ability to receive them. Her prognosis is guarded. TRANSINT:[id number] Voice Confirmation ID: [id number] DOCUMENT ID: [id number] LAMAR DURBIN MD at 0940 CC: [id number] DICTATION DATE: 01/31/19 1216 TRADING FLOOR OPERATOR: 01/31/19 1654 ADM IN [place] [id number]
--- NOTE | 2019-02-01 12:58 | NUR ---
RECEIVED PATIENT IN DINING ROOM FOR B'FAST, ALERT, CALM, COOPERATIVE, PLEASANT, NO AGGRESSION NOTED. MEDS ADMIN PER ORDERS WITH COMPLETE MED COMPLIANCE NOTED. COOPERATIVE WITH STAFF, QUIET. CONT POC DIRECTED.
[2019-02-01 20:08] VITALS: BP 127/52
--- NOTE | 2019-02-01 21:30 | NUR ---
RECEIVED IN DAYROOM. SITTING IN CHAIR WITH PEERS AT HER SIDE. NO SIGNS OF AGGRESSION. CALM AND COOPERATIVE WITH CARE AND ASSESSMENT. REDIRECT AND REORIENT NEEDED. CONTINUES TO SIT QUIETLY. CONTINUE PLAN OF CARE
[2019-02-02 07:00] VITALS: BP 112/79
--- NOTE | 2019-02-02 12:42 | NUR ---
Nutrition follow up Regular diet with 62% average po intake Last BM 01/31 Megace ordered Weight 117lb RD following
--- NOTE | 2019-02-02 13:26 | NUR ---
RECEIVED PATIENT IN DINING ROOM FOR B'FAST, ALERT, CALM, QUIET, COOPERATIVE, POLITE. APPRECIATIVE OF CARE. MEDS ADMIN PER ORDERS WITH COMPLETE MED COMPLIANCE NOTED. TAKES MEDS CRUSHED IN [place]. COOPERATIVE WITH STAFF REQUESTS AND GROUP ACTIVITY. CONT POC DIRECTED, MONITORING FOR AGGRESSION.
--- NOTE | 2019-02-02 14:35 | PN ---
PATIENT:GABI TOLLIVER MEDICAL RECORD: [id number] LOCATION:JAM Terrell ADMISSION DATE: 01/17/19 PROGRESS NOTE DATE OF SERVICE: 02/01/2019 SUBJECTIVE: The patient's case was discussed with staff. She has no new complaint. OBJECTIVE: The patient is tolerating her medicines well. She has poor insight about her condition. She is difficult to redirect at times. ASSESSMENT: Vascular dementia. PLAN: Current medicines and therapies have been reviewed and will be maintained. Long-term prognosis is guarded. TRANSINT:[id number] Voice Confirmation ID: [id number] DOCUMENT ID: [id number] LAMAR DURBIN MD at 1435 CC: [id number] DICTATION DATE: 02/01/19 0953 CREW LEAD: 02/01/19 1351 ADM IN [id number] [place] [address]
--- NOTE | 2019-02-02 21:33 | NUR ---
RECEIVED IN DAYROOM. SITTING QUIETLY IN CHAIR WITH PEERS BY HER SIDE. CALM AND COOPERATIVE WITH CARE AND ASSESSMENT. NO AGGRESSIVE BEHAVIORS. REDIRECT AND REORIENT NEEDED. RESTING IN BED WITH WITH EYES OPEN AT THIS TIME. CONTINUE PLAN OF CARE.
[2019-02-03 02:22] VITALS: BP 130/64
[2019-02-03 08:00] VITALS: BP 110/63
--- NOTE | 2019-02-03 09:41 | PN ---
PATIENT:GABI TOLLIVER MEDICAL RECORD: [id number] LOCATION:JAM Terrell ADMISSION DATE: 01/17/19 PROGRESS NOTE DATE OF SERVICE: 02/02/2019 SUBJECTIVE: The patient's case was discussed with staff. She has no new complaint. OBJECTIVE: The patient is very advanced in her dementia. She has almost no insight about what she is doing and her behaviors are difficult to redirect. She is not eating well. ASSESSMENT: Vascular dementia. PLAN: I am going to discontinue the patient's Depakote. I am concerned that it is not really producing any behavioral benefit. If I am mistaken of course, I will restart the medicine, but I am not thinking she is having significant mood lability. TRANSINT:[id number] Voice Confirmation ID: [id number] DOCUMENT ID: [id number] LAMAR DURBIN MD at 0941 CC: [id number] DICTATION DATE: 02/02/19 145 MALT HOUSE OPERATOR: 02/02/19 1459 ADM IN [id number] [place] [address]
[2019-02-03] MEDS ORDERED: Aricept PO (11:43)
[2019-02-03] MEDS ORDERED: GEODON20 MG PO (11:44)
[2019-02-03] MEDS ORDERED: MEGACE400 MG/10 PO (11:45)
--- NOTE | 2019-02-03 23:51 | NUR ---
RECEIVED IN PATIENT ROOM. RESTING IN BED WITH EYES CLOSED. RESPONDS TO VOICE. CALM AND COOPERATIVE WITH CARE AND ASSESSMENT. NO AGGRESSIVE BEHAVIORS. REDIRECT AND REORIENT NEEDED. RESTING IN BED WITH EYES CLOSED AT THIS TIME. CONTINUE PLAN OF CARE.
[2019-02-04 09:00] VITALS: BP 115/67
--- NOTE | 2019-02-04 12:50 | PN ---
PATIENT:GABI TOLLIVER MEDICAL RECORD: [id number] LOCATION:RAMAKRISHNAJasbir DerekMelaShabana ADMISSION DATE: 01/17/19 PROGRESS NOTE DATE OF SERVICE: 02/03/2019 SUBJECTIVE: The patient's case was discussed with staff. She has no new complaint. OBJECTIVE: The patient is in good behavioral control with limited insight about her condition. She tolerates her medicines well. ASSESSMENT: Vascular dementia. PLAN: Current medicines have been reviewed and will be maintained. Long-term prognosis is guarded. TRANSINT:[id number] Voice Confirmation ID: [id number] DOCUMENT ID: [id number] LAMAR DURBIN MD at 1250 CC: [id number] DICTATION DATE: 02/03/19 1141 PATIENT MONITOR: 02/03/19 1154 ADM IN [id number] [place] [address]
--- NOTE | 2019-02-04 12:50 | NUR ---
ALESSANDRO CALLED PT'S , PIEDAD, TO DISCUSS DISCHARGE PLANS FOR TODAY. PT WILL BE GOING TO [facility]. PIEDAD VOICED UNDERSTANDING OF DISCUSSION.
--- NOTE | 2019-02-04 14:15 | NUR ---
IS CONFUSED AND DISORIENTED,BUT MUCH IMPROVED FROM ADMISSION.NOW FEEDS SELF,TAKES MEDS WHOLE,AND IS COMPLIANT WITH STAFF.AMBULATES WITH A SLIGHTLY UNSTEADY GAIT.IS DISCHARGED TO [facility]IA [facility] .ALL PERSONAL ITEMS AND INSTRUCTIONS SENT WITH HER.
--- NOTE | 2019-02-04 14:35 | NUR ---
REPORT CALLED TO NIRMALA CERVANTES AT [facility].
--- NOTE | 2019-02-05 15:03 | PN ---
PATIENT:GABI TOLLIVER MEDICAL RECORD: [id number] LOCATION:DerekLUCIAJasbir DerekMelaShabana ADMISSION DATE: 01/17/19 PROGRESS NOTE DATE OF SERVICE: 02/04/2019 SUBJECTIVE: The patient's case was discussed with staff. She has no new complaint. OBJECTIVE: The patient is in good behavioral control, but quite confused. She has no thoughts of harming herself or others. She is tolerating her medicines well. ASSESSMENT: Vascular dementia. PLAN: Current medicines and therapies have been reviewed and will be maintained. Long-term prognosis is guarded. TRANSINT:[id number] Voice Confirmation ID: [id number] DOCUMENT ID: [id number] LAMAR DURBIN MD at 1503 CC: [id number] DICTATION DATE: 02/04/19 1305 SECONDS HANDLER: 02/04/19 1634 DIS IN 02/04/19 [facility] [address] [place] [address]
== END 2019-02-04 14:15 | DRG 57 ==
LOC: D.PSYCH 16:53
PROVIDERS: Psychiatry & Neurology Psychiatry; ADMIT Psychiatry & Neurology Psychiatry; ATTEND Psychiatry & Neurology Psychiatry
DX: G30.1 Alzheimer's disease with late onset (principal); F02.81 Dementia in other diseases classified elsewhere, unspecified severity, with behavioral disturbance; N17.9 Acute kidney failure, unspecified; Z68.1 Body mass index [BMI] 19.9 or less, adult; I10 Essential (primary) hypertension; F41.9 Anxiety disorder, unspecified; F32.9 Major depressive disorder, single episode, unspecified; E03.9 Hypothyroidism, unspecified; E55.9 Vitamin D deficiency, unspecified; E78.5 Hyperlipidemia, unspecified; R63.0 Anorexia; M19.90 Unspecified osteoarthritis, unspecified site; G24.01 Drug induced subacute dyskinesia

== ENCOUNTER 2019-03-26 14:13 | Inpatient (IN) | payer MEDICARE ==
[~2019-03-26] VITALS: Ht 165.1 cm; Wt 53.4 kg
[~2019-03-26 14:13] MED LIST changes: +ACETAMINOPHEN325 MG PO; +Aricept PO; +DEPAKOTE125 MG PO; +DEPAKOTE250 MG PO; +DONEPEZIL HCL10 MG PO; +IBUPROFEN400 MG PO; +MEGACE400 MG/10 PO; +MILK OF MAGNESI30 ML PO; +MIRALAX17 GM PO; +MYLANTA / MAALO30 ML PO; +NAMENDA10 MG PO; +PROMOD LIQUID P30 M1 PO; +REMERON15 MG PO; +TENORMIN25 MG PO; +VITAMIN D31000 UNIT PO; +ZOCOR40 MG PO
[2019-03-26] MEDS ORDERED: DONEPEZIL HCL10 MG (17:46)
[2019-03-26] MEDS ORDERED: REMERON30 MG (17:52)
[2019-03-26] MEDS ORDERED: LINZESS145 MCG (17:53)
[2019-03-26] MEDS ORDERED: DEPAKOTE125 MG (17:53)
[2019-03-26 18:22] VITALS: BP 124/76; BMI 19.3
--- NOTE | 2019-03-26 18:58 | NUR ---
PATIENT ARRIVED TO UNIT VIA EMS AT 1530. PATIENT TOLERATED ADMIT TAKEN AND HEIGHT TAKEN. ASSESSMENT AND VITAL SIGNS DONE. PT TOLERATED WELL. PATIENT CONSENTED FOR PATIENT STAY AND CODE WORD: RED. PATIENT CAN AMBULATE UNSTEADY AND ASSIST WITH WHEELCHAIR. ONE PERSON TRANFSER. DIET: DIABETIC WITH MECH SOFT AND THIN LIQUIDS. ADMIT WEIGHT: 116 LBS VIA WHEELCHAIR SCALE. PT IS INCONTINET. PATIENT SAID TO BE HITTING INTERMEDIATE STAFF AND CURSING. PATIENT CLOTHING INVENTORY COMPLETED. ORDERS IN THE COMPUTER. DOCTOR NOTIFIED OF MEDICATIONS IN THE COMPUTER.
[2019-03-26 19:36] VITALS: BP 110/60
--- NOTE | 2019-03-26 21:18 | NUR ---
PATIENT IS VERY CONFUSED, HAS TO BE REDIRECTED OVER AND OVER, NO INSIGHT AT ALL TO HER SITUATION, DEPENDENT ON OTHERS FOR ADL'S. WILL FOLLOW POC
--- NOTE | 2019-03-26 22:43 | NUR ---
PATIENT RECEIVED ATIVAN/HALDOL IM FOR AGRESSIVE BEHAVIOR(SCREAMING, CURSING, SCRATCHING). PT. TOLERATED WELL
[2019-03-27 06:24] LABS: BASOPHILS 0.3 % (0-2); EOSINOPHILS 2.3 % (0-7); HEMATOCRIT 41.3 % (36.0-48.0); HEMOGLOBIN 14.2 g/dL (12-16); IMMATURE GRANULOCYTES 0.3 % (0-5); LYMPHOCYTES 40.8 % (15-50); MCH 33.2 pg (26.0-34.0); MCHC 34.4 g/dL (31.0-37.0); MCV 96.5 fL (80.0-100.0); MEAN PLATELET VOLUME 10.2 fL (7.4-10.4); MONOCYTES 10.9 % (2-11); NEUTROPHILS 45.4 % (40-80); RBC 4.28 10x6/uL (4.00-5.40); RDW 13.3 % (11.5-14.5); WBC 7.3 10x3/uL (4.8-10.8)
[2019-03-27 06:26] LABS: PLATELET COUNT 169 10x3/uL (130-400)
[2019-03-27 06:58] LABS: ALBUMIN 2.8 g/dL (3.4-5.0); BILIRUBIN - TOTAL 0.42 mg/dL (0.2-1.3); CALCIUM 8.8 mg/dL (8.5-10.1); CREATININE - SERUM 1.2 mg/dL (0.6-1.3); LDL-HDL RATIO 2.7 ratio (1.5-3.5); PROTEIN - SERUM 6.3 g/dL (6.4-8.2); T4 THYROXIN - FREE 0.98 ng/dL (0.76-1.46); THYROID STIMULATING HORMONE 2.86 uIU/mL (0.36-3.74)
--- NOTE | 2019-03-27 08:00 | NUR ---
PATIENT SITTING IN CHAIR AWAITING BREAKFAST. NO ACUTE DISTRESS NOTED. PT IS COMPLIANT WITH MEALS, ASSESSMENTS, AND VITAL SIGNS. NO BEHAVIORS NOTED. PT DOES REQUIRE ASSISTANCE WITH AMBULATION. PT DID EAT BREAKFAST AND REFUSE LUNCH. WILL CONT PLAN OF CARE.
[2019-03-27 08:23] VITALS: BP 141/70
[2019-03-27 11:22] VITALS: BP 141/70
[2019-03-27 12:09] VITALS: BMI 19.3
[2019-03-27 12:51] VITALS: Ht 165.1 cm; Wt 53.4 kg
--- NOTE | 2019-03-27 18:20 | NUR ---
PATIENT LAYING ON COUCH WITH EYES CLOSED. RESP EVEN AND NONLABORED. PT HAS HAS SMALL OUTBURST OF CURSING WITH STAFF DURING REDIRECTION. PT WAS ABLE TO BE DIRECTED AT TIMES. MED COMPLIANT, ADLS AND MEALS. WILL CONT PLAN OF CARE.
[2019-03-27 20:50] VITALS: BP 133/60
--- NOTE | 2019-03-28 03:37 | NUR ---
B) Patient is alert and oriented to self, very confused and difficult to redirect, I) Administered scheduled medications as ordered, monitored for safety R) Mediation compliant, sleeping quietly in herbed, P) Continue plan of care.
[2019-03-28 06:58] LABS: APPEARANCE HAZY (CLEAR); BILIRUBIN NEGATIVE (NEGATIVE); COLOR YELLOW (YELLOW); GLUCOSE NEGATIVE (NEGATIVE); KETONE NEGATIVE (NEGATIVE); NITRITE NEGATIVE (NEGATIVE); PROTEIN TRACE mg/dL (NEGATIVE); SPECIFIC GRAVITY 1.005 (1.005-1.020); UROBILINOGEN NORMAL (NORMAL); WHITE CELLS - URINE RARE /hpf (0-5)
[2019-03-28 08:06] VITALS: BP 134/81
[2019-03-28 09:00] VITALS: BP 134/81
--- NOTE | 2019-03-28 11:16 | PSY ---
PATIENT NAME:GABI TOLLIVER MEDICAL RECORD: [id number] : 44 LOCATION:DerekMICHELLE Terrell9 ADMISSION DATE: 03/26/19 ACCOUNT: [id number] PSYCHIATRIC EVALUATION DATE OF EVALUATION: 03/27/19 IDENTIFYING DATA: The patient is 79 years old and she is admitted to the hospital on a voluntary basis. CHIEF COMPLAINT: Aggression. HISTORY OF PRESENT ILLNESS: The patient lives in a local halfway. She has been aggressive and cursing at the staff and other residents. She is very impaired and clearly does not have any recollection of this. She apparently is fairly unsteady and this is also a problem and that whenever they tried to assist her or redirect her from doing something she should not, she gets angry. She is admitted to the hospital for evaluation and treatment of these symptoms. The patient was kicking, screaming and cursing when brought onto the unit and did have to have medication to calm her even before she could be admitted. PAST MEDICAL HISTORY: Significant for hypothyroidism and hyperlipidemia. She also has hypertension and congestive heart failure. PAST PSYCHIATRIC HISTORY: Significant for an established diagnosis of dementia and this is at least her third hospitalization here in the past 2 years, all for similar behaviors at a nursing facility. FAMILY HISTORY: Noncontributory. ALLERGIES: No known allergies. CURRENT MEDICATIONS: Include Depakote, Remeron, Aricept, Namenda, vitamin D3, Linzess, Mylanta, milk of magnesia, melatonin, Zocor, MiraLax, Tenormin, Aricept. SOCIAL HISTORY: The patient is . She does have 2 adult children. She has no history of drug or alcohol use, and she is not able to provide me with much in the way of useful history about her social or occupational functioning. MENTAL STATUS EXAMINATION: The patient is awake, alert and oriented to person only. By person only, I mean, she knows her first name, but cannot even tell me her last name. Her mood is anxious. Her affect is constricted. Thought processes are very disorganized and she is too impaired to participate in formal memory, concentration, and abstraction testing, but all of them are very markedly impaired. She denies that she would want to harm herself or others and she denies psychotic symptoms, although I do not believe she understood the question. ASSETS: Supportive family members. LIABILITIES: Limited insight. DIAGNOSTIC IMPRESSION: AXIS I: Major neurocognitive disorder of the Alzheimer's type with behavior disturbances. AXIS II: None. AXIS III: Hypertension, congestive heart failure, hypothyroidism, hyperlipidemia. AXIS IV: Moderate stressors. AXIS V: Global assessment of functioning is 30. PLAN: At this time, the patient is admitted to the hospital secondary to aggressive, disruptive behaviors associated with a dementing illness. She will be treated with both mood stabilizing and memory enhancing medications. Her long-term prognosis is guarded. TRANSINT:[id number] Voice Confirmation ID: [id number] DOCUMENT ID: [id number] LAMAR DURBIN MD at 1116 CC: [id number] DICTATION DATE: 03/27/19 1530 SPA DIRECTOR/FINANCE: 03/27/19 1542 ADM IN [place] [id number] [place] [id number]
--- NOTE | 2019-03-28 15:55 | NUR ---
ORIENTED TO SELF ONLY.YELLS OUT AT TIMES.IS COMPLIANT WITH STAFF AND MEDS.NO AGGRESSION OBSERVED.CAN AMBULATE BUT IS FALL RISK BECAUSE ONE FOOT CROSSES IN FRONT OF THE OTHER AT TIMES.WILL CONTINUE WITH PLAN OF CARE,MONITOR FOR CHANGES AND SAFETY.
[2019-03-28 20:40] VITALS: BP 114/52
--- NOTE | 2019-03-29 02:00 | NUR ---
B) Patient is alert and oriented to self, has difficulty expressing herself, can make her needs known with yes/no questions, I) Administered scheduled medications as ordered, monitored for safety R) Medication compliant, P) Continue plan of care.
[2019-03-29 07:00] VITALS: BP 128/56
[2019-03-29 09:00] VITALS: BP 128/55
--- NOTE | 2019-03-29 11:26 | NUR ---
RECEIVED PATIENT IN DINING ROOM FOR B'FAST, ALERT, CALM, COOPERATIVE. NO AGGRESSION NOTED. HOWEVER, PT OCCASIONALLY CURSES ALOUD FOR NO APPARENT REASON. VERY UNSTABLE GAIT, REQUIRES ONE ON ONE ASSISTANCE WITH AMBULATION. COOPERATIVE WITH PLAN OF CARE. CONT POC DIRECTED
--- NOTE | 2019-03-29 13:34 | PN ---
PATIENT:GABI TOLLIVER MEDICAL RECORD: [id number] LOCATION:JAM PhanShabana ADMISSION DATE: 03/26/19 PROGRESS NOTE DATE OF SERVICE: 03/28/2019 SUBJECTIVE: The patient's case was discussed with staff. She has no new complaint. OBJECTIVE: The patient did not eat well yesterday. That was her first full day in the hospital, so I am not sure if that is related to something I need to strongly address but she is underweight, so I am going to encourage staff to give her food and water. I am also going to start her on Megace. Her dementia is advanced. I am not surprised she is having difficulty eating. She did sleep well last night and was not aggressive today. She also had a bowel movement yesterday. ASSESSMENT: No change in diagnoses. PLAN: I am going to start the patient on Megace to assist with appetite stimulation. TRANSINT:[id number] Voice Confirmation ID: [id number] DOCUMENT ID: [id number] LAMAR DURBIN MD at 1334 CC: [id number] DICTATION DATE: 03/28/19 1124 LEAD MECHANICAL ENGINEER: 03/28/19 1143 ADM IN [facility] [address] [place] [address]
[2019-03-29 21:17] VITALS: BP 134/74
--- NOTE | 2019-03-29 21:46 | NUR ---
B.) PT IS ALERT AND ORIENTED TO SELF ONLY. SHE IS MORE PLEASANT TODAY. PT IS HARD OF HEARING AND TALKS VERY LOUDLY. SHE IS AMBULATE WITH ASSIST. SHE HAS ATTEMPTED TO GET OUT OF BED WITHOUT ASSITANCE AND HAS HAD LESS CUSSING EPISODES TODAY. I.) REDIRECT AND REORIENT NEEDED. PROVIDED PM MEDICATION. R.) PT REMAINS DISORIENTED DESPITE ATTEMPTS TO REORIENT. COMPLIANT WITH MEDICATIONS. P.) CONTINUE PLAN OF CARE.
[2019-03-30 07:00] VITALS: BP 96/57
--- NOTE | 2019-03-30 14:10 | NUR ---
PT IS AWAKE AND ALERT TO PERSON ONLY. CALM AND COOERATIVE WITH ASSESSMENT. MED COMPLIANT. REDIRECT AND REORIENT NEEDED. FALL PRECAUTIONS IN PLACE. WILL CPOC.
--- NOTE | 2019-03-30 19:30 | NUR ---
OBSERVED AMBULATING IN THE DAYROOM. POOR EYE CONTACT WHEN TALKING WITH PATIENT. STUTTERS WHEN TRIES TO TALK. ARGUMENTATIVE AND DOES NOT WANT TO LEAVE DAYROOM. CONFUSED. REORIENT TO PLACE, TIME AND SITUATION EVERY SHIFT AND NEEDED. ADMINISTER MEDS PER ORDERS. POOR COMPREHENSION AND RETENTION OF INFORMATION. CONTINUE POC AND PROVIDE SAFE ENVIRONMENT.
[2019-03-30 20:27] VITALS: BP 130/77
--- NOTE | 2019-03-30 21:09 | NUR ---
MED COMPLIANT. SITTING IN WHEELCHAIR.
[2019-03-31 07:00] VITALS: BP 157/75
--- NOTE | 2019-03-31 07:43 | NUR ---
REC'D PT IN HALLWAY WITH PEERS. PT IS AWAKE AND ALERT TO PERSON ONLY. CALM AND COOPERATIVE WITH ASSESSMENT. MED COMPLIANT. REDIRECT AND REORIENT NEEDED. FALL PRECAUTIONS IN PLACE. WILL CPOC.
--- NOTE | 2019-03-31 14:05 | PN ---
PATIENT:GABI TOLLIVER MEDICAL RECORD: [id number] LOCATION:JAM PhanShabana ADMISSION DATE: 03/26/19 PROGRESS NOTE DATE OF SERVICE: 03/30/2019 SUBJECTIVE: The patient's case was discussed with staff. She has no new complaint. OBJECTIVE: The patient is tolerating her medicines well. She slept and ate well last night. She certainly needs 25-spja-y-day supervision. Her long-term prognosis is guarded. TRANSINT:[id number] Voice Confirmation ID: [id number] DOCUMENT ID: [id number] LAMAR DURBIN MD at 1405 CC: [id number] DICTATION DATE: 03/30/19 1418 MEDICAL TERRITORY MANAGER: 03/30/19 1505 ADM IN [id number] [place] [address]
--- NOTE | 2019-03-31 14:05 | PN ---
PATIENT:GABI TOLLIVER MEDICAL RECORD: [id number] LOCATION:SylvesterFLAVIOJasbir PhanShabana ADMISSION DATE: 03/26/19 PROGRESS NOTE DATE OF SERVICE: 03/29/2019 SUBJECTIVE: The patient's case was discussed with staff. She has no new complaint. OBJECTIVE: The patient denies intent to harm herself or others. She generally tolerates her medicines well. ASSESSMENT: No change in diagnoses. PLAN: Supportive and educational interventions were made. Long-term prognosis is guarded. TRANSINT:[id number] Voice Confirmation ID: [id number] DOCUMENT ID: [id number] LAMAR DURBIN MD at 1405 CC: [id number] DICTATION DATE: 03/29/19 1357 FRONT DESK MANAGER: 03/29/19 1747 ADM IN [place] [id number]
--- NOTE | 2019-03-31 14:38 | NUR ---
Nutrition Follow-up: Diet: Diabetic Mech soft with thin liquids + van glucerna with meals PO: ~62% x last 5 days Meds: megace, others reviewed Labs reviewed Last BM 03/28/19 x 2 Wt: 116# (03/29/19) trend stable since admit RD Following
[2019-03-31 18:52] VITALS: BP 105/69
--- NOTE | 2019-03-31 19:21 | NUR ---
RECEIVED IN DAYROOM. SITTING IN A CHAIR WITH PEERS AT HER SIDE. CALM AND COOPERATIVE WITH CARE AND ASSESSMENT. NO SIGNS OF AGGRESSION. REDIRECT AND REORIENT NEEDED. RESTING IN RECLINER OUTSIDE OF NURSES STATION AT THIS TIME. CONTINUE PLAN OF CARE
[2019-04-01 09:41] VITALS: BP 157/103
[2019-04-01 10:41] VITALS: BP 106/70
--- NOTE | 2019-04-01 14:45 | NUR ---
PT IS AWAKE AND ALERT TO PERSON ONLY. CALM AND COOPERATIVE WITH ASSESSMENT. REDIRECT AND REORIENT NEEDED. MED COMPLIANT. FALL PRECAUTIONS IN PLACE. WILL CPOC.
--- NOTE | 2019-04-01 15:09 | PN ---
PATIENT:GABI TOLLIVER MEDICAL RECORD: [id number] LOCATION:SylvesterFLAVIOJasbir PhanShabana ADMISSION DATE: 03/26/19 PROGRESS NOTE DATE OF SERVICE: 03/31/2019 SUBJECTIVE: The patient's case was discussed with staff. She has no new complaint. OBJECTIVE: The patient denies intent to harm herself or others. She is generally tolerating her medicines well. ASSESSMENT: No change in diagnoses. PLAN: Supportive and educational interventions were made. Long-term prognosis is guarded. TRANSINT:[id number] Voice Confirmation ID: [id number] DOCUMENT ID: [id number] LAMAR DURBIN MD at 1509 CC: [id number] DICTATION DATE: 03/31/19 1426 MINUTE CLERK FOR BASIC TRAFFIC: 03/31/19 1630 ADM IN [place] [id number] [place] [id number]
[2019-04-01 19:39] VITALS: BP 110/64
--- NOTE | 2019-04-01 20:53 | NUR ---
B) patient is alert and oriented to person, confused and has difficulty communicating, I) Administered scheduled medications as ordered, assisted with needs, R) Mediation compliant, pleasnat toward staff P) Continue plan of care,
--- NOTE | 2019-04-02 09:00 | NUR ---
RECEIVED PATIENT IN DINING ROOM FOR B'FAST, ALERT, CALM, COOPERATIVE, NO AGGRESSION OR CURSING NOTED. MEDS ADMIN PER ORDERS WITH COMPLETE MED COMPLIANCE NOTED. COOPERATIVE WITH STAFF AND GROUP ACTIVITIES. CONT POC DIRECTED INCLUDING MEDS AND GROUP THERAPY.
--- NOTE | 2019-04-02 09:23 | NUR ---
Team Treatment Review: Diet: ADA Mech Soft, Glucerna w/ meals PO Intake: 82% x 5 meals Wt: 116 lbs on Mar 29 (No sig wt changes) BM: X 1 on Apr 01 Sig Meds: Vit D, Milk of Mag, Megace, Miralax Sig Labs: A1C- 6.1 (H), HDL- 29 (L) Goals: Continue ADA Mech Soft Diet w/ Glucerna as tolerated Maintain stable wt during hospital stay Maintain PO intake >/= 75% estimated energy expenditure Will continue montitoring PO intake, wt, BM, labs, and meds Clinical Dietitian Following
[2019-04-02 13:13] VITALS: BP 117/77
--- NOTE | 2019-04-02 15:14 | PN ---
PATIENT:GABI TOLLIVER MEDICAL RECORD: [id number] LOCATION:JAM PhanShabana ADMISSION DATE: 03/26/19 PROGRESS NOTE DATE OF SERVICE: 04/01/2019 SUBJECTIVE: The patient's case was discussed with staff. She has no new complaint. OBJECTIVE: The patient is impaired, but not significantly agitated. She is difficult to redirect at times. ASSESSMENT: No change in diagnoses. PLAN: Brief supportive and educational interventions were made. Her long-term prognosis is guarded. I anticipate she can be transitioned out of the hospital soon if this level of improvement continues. TRANSINT:[id number] Voice Confirmation ID: [id number] DOCUMENT ID: [id number] LAMAR DURBIN MD at 1514 CC: [id number] DICTATION DATE: 04/01/19 165 CORRECTIONS SPECIALIST: 04/01/19 194 ADM IN [place] [id number] [place] [id number]
[2019-04-03 05:19] VITALS: BP 134/69
[2019-04-03 07:53] VITALS: BP 142/82
--- NOTE | 2019-04-03 09:21 | NUR ---
PATIENT SITTING IN CHAIR IN DAY AREA. RESP EVEN AND NONLABORED. NO ACUTE DISTRESS NOTED. PT COMPLIANT WITH MEDS, ASSESSMENT AND VITAL SIGNS. PT AMBULATES WITH ASSIST. GAIT IS UNSTEADY. NONSKID SOCKS IN PLACE. PT DOES YELL OUT CURSE WORDS AT TIMES. PT IS EASY TO REDIRECT. ASSIST WITH ADL'S. WILL CONT PLAN OF CARE.
--- NOTE | 2019-04-03 16:29 | PN ---
PATIENT:GABI TOLLIVER MEDICAL RECORD: [id number] LOCATION:DerekLUCIAJasbir PhanShabana ADMISSION DATE: 03/26/19 PROGRESS NOTE DATE OF SERVICE: 04/02/2019 SUBJECTIVE: The patient's case was discussed with staff. She has no new complaint. OBJECTIVE: The patient denies intent to harm herself or others. She is tolerating her medicines well. She is very impaired cognitively. ASSESSMENT: No change in diagnoses. PLAN: Supportive and educational interventions were made. Long-term prognosis is guarded. TRANSINT:[id number] Voice Confirmation ID: [id number] DOCUMENT ID: [id number] LAMAR DURBIN MD at 1629 CC: [id number] DICTATION DATE: 04/03/19 1458 NETWORK OPERATIONS LEAD: 04/03/19 1607 ADM IN [place] [address] [place] [address]
[2019-04-03 21:00] VITALS: BP 151/76
--- NOTE | 2019-04-04 02:55 | NUR ---
PATIENT IS CONFUSED, HAS A HARD TIME MAKING NEEDS KNOWN BUT SHE CAN, COMPLIANT WITH MEDS. WILL FOLLOW POC
--- NOTE | 2019-04-04 09:30 | PN ---
PATIENT:GABI TOLLIVER MEDICAL RECORD: [id number] LOCATION:JAM Terrell ADMISSION DATE: 03/26/19 PROGRESS NOTE DATE OF SERVICE: 04/03/2019 SUBJECTIVE: The patient's case was discussed with staff. She has no new complaints. OBJECTIVE: The patient is limited in her insight. She is partially oriented. She has not been aggressive for several days. ASSESSMENT: No change in diagnoses. PLAN: The patient can reasonably be transitioned out of the hospital soon. Her long-term prognosis is guarded. TRANSINT:[id number] Voice Confirmation ID: [id number] DOCUMENT ID: [id number] LAMAR DURBIN MD at 0930 CC: [id number] DICTATION DATE: 04/03/19 1715 PRICING MANAGER: 04/03/19 2330 ADM IN [address] [address]
[2019-04-04 13:07] VITALS: BP 128/66
--- NOTE | 2019-04-04 18:11 | NUR ---
VERY CONFUSED AND DISORIENTED.ORIENTED TO SELF ONLY.IS COMPLIANT WITH STAFF AND MEDS.NO AGGRESSION OBSERVED THIS SHIFT.PROPELLS SELF IN WHEELCHAIR,HAS UNSTEADY GAIT.WILL CONTINUE WITH CURRENT PLAN OF CARE,MONITOR FOR CHANGES AND SAFETY.
--- NOTE | 2019-04-05 02:21 | NUR ---
PATIENT IS CONFUSED, EASILY AGITATED. HOLLERS AND CURSES STAFF WHEN BEING REDIRECTED. COMPLIANT WITH MEDS. WILL FOLLOW POC
[2019-04-05 03:11] VITALS: BP 137/84
--- NOTE | 2019-04-05 10:20 | NUR ---
PATIENT SITTING IN CHAIR AT THIS TIME. NO ACUTE DISTRESS NOTED. PT CAN YELL OUT AT TIMES WHEN UPSET. USUALLY PASSES QUICK. PT NOT COMBATIVE WITH ADL'S. COMPLIANT WITH MEDS, ASSESSMENTS AND VITALS. PT IN CHAIR WITH ALARM IN PLACE AND ACTIVE. WILL CONT PLAN OF CARE.
[2019-04-05 10:33] VITALS: BP 142/50
--- NOTE | 2019-04-05 10:49 | PN ---
PATIENT:GABI TOLLIVER MEDICAL RECORD: [id number] LOCATION:SylvesterFLAVIOJasbir PhanShabana ADMISSION DATE: 03/26/19 PROGRESS NOTE DATE OF SERVICE: 04/04/2019 SUBJECTIVE: The patient's case was discussed with staff. She has no new complaint. OBJECTIVE: The patient is in good behavioral control. She has virtually no insight about her situation. She is eating well. ASSESSMENT: No change in diagnoses. PLAN: I think this patient can be transitioned out of the hospital soon if this level of improvement is continued. TRANSINT:[id number] Voice Confirmation ID: [id number] DOCUMENT ID: [id number] LAMAR DURBIN MD at 1049 CC: [id number] DICTATION DATE: 04/04/19 1132 PANEL SAW OPERATOR: 04/04/19 1405 ADM IN [place] [address] [place] [address]
[2019-04-05 20:00] VITALS: BP 125/80
--- NOTE | 2019-04-06 00:14 | NUR ---
RECEIVED IN DAYROOM. SITTING IN A CHAIR WITH PEERS BY HER SIDE. CALM AND COOPERATIVE WITH CARE AND ASSESSMENT. REDIRECT AND REORIENT NEEDED. ENCOURAGE TO EXPRESS NEEDS. RESTING IN BED WITH EYES CLOSED. CONTINUE PLAN OF CARE
[2019-04-06 07:00] VITALS: BP 130/84
--- NOTE | 2019-04-06 13:45 | NUR ---
PT IS AWAKE AND ALERT TO PERSON ONLY. PT IS CALM AND COOPERATIVE WITH ASSESSMENT. MED COMPLIANT. REDIRECT AND REORIENT NEEDED. FALL PRECAUTIONS IN PLACE. WILL CPOC.
--- NOTE | 2019-04-06 16:47 | PN ---
PATIENT:GABI TOLLIVER MEDICAL RECORD: [id number] LOCATION:JAM PhanShabana ADMISSION DATE: 03/26/19 PROGRESS NOTE DATE OF SERVICE: 04/05/2019 SUBJECTIVE: The patient's case was discussed with staff. She has no new complaint. OBJECTIVE: The patient is in good behavioral control with limited insight about her condition. She tolerates her medicines well. ASSESSMENT: No change in diagnoses. PLAN: Brief supportive and educational interventions were made. Long-term prognosis is guarded. TRANSINT:[id number] Voice Confirmation ID: [id number] DOCUMENT ID: [id number] LAMAR DURBIN MD at 1647 CC: [id number] DICTATION DATE: 04/05/19 1204 SOFTWARE ASSET MANAGEMENT ANALYST: 04/05/19 1526 ADM IN [address] [address]
[2019-04-06 20:03] VITALS: BP 153/63
--- NOTE | 2019-04-06 21:56 | NUR ---
B.) PT IS ALERT AND ORIENTED TO SELF ONLY. SHE IS PLEASANT BUT HER VOICE IS LOUD WHEN SHE SPEAKS. SHE AMBULATES WITH A JULIAN CHAIR. I.) PROVIDED PM MEDICATIONS. R.) COMPLIANT WITH ALL MEDICATIONS. P.) CONTNUE PLAN OF CARE
[2019-04-07 07:00] VITALS: BP 129/88
--- NOTE | 2019-04-07 14:57 | PN ---
PATIENT:GABI TOLLIVER MEDICAL RECORD: [id number] LOCATION:JAM PhanShabana ADMISSION DATE: 03/26/19 PROGRESS NOTE DATE OF SERVICE: 04/06/2019 SUBJECTIVE: The patient's case was discussed with staff. She has no new complaint. OBJECTIVE: The patient is in good behavioral control. She has no thoughts of harming herself or others. She tolerates her medicines well. ASSESSMENT: No change in diagnoses. PLAN: Supportive and educational interventions were made. Long-term prognosis is guarded. TRANSINT:[id number] Voice Confirmation ID: [id number] DOCUMENT ID: [id number] LAMAR DURBIN MD at 1457 CC: [id number] DICTATION DATE: 04/06/19 170 TMD TEACHER ASSISTANT: 04/06/191926 ADM IN [place] [id number] [place] [address]
[2019-04-07 21:25] VITALS: BP 112/86
--- NOTE | 2019-04-08 00:33 | NUR ---
RECEIVED IN BEDROOM. RESTING IN BED WITH EYES CLOSED. CALM AND COOPERATIVE WITH CARE AND ASSESSMENT. NO SIGNS OF AGGRESSION. REDIRECT AND REORIENT NEEDED. RESTING IN BED WITH EYES CLOSED AT THIS TIME. CONTINUE PLAN OF CARE
[2019-04-08 10:13] VITALS: BP 127/69
--- NOTE | 2019-04-08 11:50 | NUR ---
RECEIVED PATIENT IN DAYROOM, ALERT, CONFUSED, OCCASIONALLY CURSES ALOUD DISRUPTING THE MILIEU. NO PHYSICAL AGGRESSION NOTED. MEDS ADMIN PER ORDERS WITH COMPLETE MED COMPLIANCE NOTED. COOPERATIVE WITH PLAN OF CARE. CONT POC DIRECTED.
--- NOTE | 2019-04-08 14:55 | PN ---
PATIENT:GABI TOLLIVER MEDICAL RECORD: [id number] LOCATION:JAM PhanShabana ADMISSION DATE: 03/26/19 PROGRESS NOTE DATE OF SERVICE: 04/07/2019 SUBJECTIVE: The patient's case was discussed with staff. She has no new complaint. OBJECTIVE: The patient is in good behavioral control with limited insight about her condition. She tolerates her medicines well. Long-term prognosis is guarded. TRANSINT:[id number] Voice Confirmation ID: [id number] DOCUMENT ID: [id number] LAMAR DURBIN MD at 1455 CC: [id number] DICTATION DATE: 04/07/19 1520 CRIB TENDER: 04/07/19 1618 ADM IN [address] [address]
--- NOTE | 2019-04-08 19:40 | NUR ---
REC'D PT SITTING IN THE DAYROOM. NO INTERACTION WITH PEERS. WILL START MAKING GARBLED NOISES WHEN SHE HEARS YOU TALKING TO SOMEONE ELSE. WILL STAND UP UNASSISTED BUT WILL SIT WHEN TOLD. POOR EYE CONTACT. LABILE WILL CURSE AND ARGUE AND THEN WILL THANK YOU. ADMINISTER MEDS PER ORDERS Q SHIFT AND MONITOR COMPLIANCE. REORIENT NEEDED. MED COMPLIANT. POOR REORIENTATION DUE TO INABILITY TO PROCESS AND RETAIN INFORMATION. CONTINUE POC AND PROVIDE SAFE ENVIRONMENT.
[2019-04-08 22:52] VITALS: BP 120/56
--- NOTE | 2019-04-09 07:50 | NUR ---
REC'D PATIENT LAYING IN BED WITH EYES CLOSED. RESP EVEN AND NONLABORED. NO ACUTE DISTRESS NOTED. BED ALARM IN PLACE AND ACTIVE. PT COMPLIANT WITH ASSESSMENTS, MEDS AND VITALS. PT ASSIST 1X WITH AMBULATION. PATIENT WILL YELL OUT AT TIMES. EASY TO REDIRECT WITH OUTBURSTS. WILL CONT PLAN OF CARE.
[2019-04-09 09:00] VITALS: BP 137/86
--- NOTE | 2019-04-09 13:14 | NUR ---
NUTRITION F/U PT [facility] SOFT DIABETIC DIET. ~75% AVERAGE INTAKE RECENT MEALS. WT REMAINS STABLE. WILL CONTINUE TO MONITOR PO INTAKE AND WT. RD FOLLOWING
[2019-04-09] MEDS ORDERED: ASPIRIN81 MG PO (14:59)
[2019-04-09 19:31] VITALS: BP 152/80
--- NOTE | 2019-04-09 19:45 | NUR ---
RECEIVED PATIENT SITTING IN THE DAYROOM. POOR EYE CONTACT. CAN SPEAK A SINGLE WORD. WILL YELL AND CURSE AT TIMES. GETS UP UNASSISTED BUT WILL FOLLOW VERBAL INSTRUCTION TO SIT DOWN TO PREVENT FALLING. ORIENTED TO SELF ONLY. ADMINISTER MEDS PER ORDERS Q SHIFT AND MONITOR COMPLIANCE. REORIENT Q SHIFT AND NEEDED. MED COMPLIANT AND WILL TELL YOU THANK YOU. UNABLE TO REORIENT DUE TO INABILITY TO PROCESS INFORMATION. BECOMES UPSET WITH STIMULATION AND WILL YELL OUT A CURSE WORD. CONTINUE POC AND PROVIDE SAFE ENVIRONMENT.
--- NOTE | 2019-04-10 08:50 | NUR ---
PATIENT SITTING AND EATING BREAKFAST. RESP EVEN AND NONLABORED. NO ACUTE DISTRESS NOTED. PT IS ONE PERSON ASSIST. PT IS COMPLIANT WITH MEALS, MEDICATIONS AND VITALS. PT HAS HAD NO REPORTED BEHAVIORS FROM PREVIOUS SHIFT. CHAIR ALARM IN PLACE AND ACTIVE. WILL CONT PLAN OF CARE.
[2019-04-10 09:56] VITALS: BP 123/82
--- NOTE | 2019-04-10 15:42 | PN ---
PATIENT:GABI TOLLIVER MEDICAL RECORD: [id number] LOCATION:JAM Terrell ADMISSION DATE: 03/26/19 PROGRESS NOTE DATE OF SERVICE: 04/09/2019 SUBJECTIVE: The patient's case was discussed with staff. She has no new complaint. OBJECTIVE: The patient denies intent to harm herself or others. She is tolerating her medicines well. ASSESSMENT: No change in diagnoses. PLAN: Supportive and educational interventions were made. Long-term prognosis is guarded. I think the patient is at or near her baseline level of functioning and that she can reasonably be transitioned out of the hospital soon. TRANSINT:[id number] Voice Confirmation ID: [id number] DOCUMENT ID: [id number] LAMAR DURBIN MD at 1542 CC: [id number] DICTATION DATE: 04/09/19 1458 SHIP YARD ELECTRICAL PERSON: 04/09/19 1757 ADM IN [facility] [address] [place] [address]
--- NOTE | 2019-04-10 17:48 | NUR ---
PATIENT IS AWAITING [facility].
--- NOTE | 2019-04-10 18:03 | NUR ---
PATIENT DISCHARGED WITH [facility]. PAPERWORK GIVEN TO EMS PERSONAL. PATIENT TOLERATED TRANFER WELL. PT IS STABLE AT TIME OF DISCHARGE. [facility] AWARE OF PATIENT TRANSPORT. WILL CALL AND NOTIFY OF TRANPORT.
--- NOTE | 2019-04-11 12:25 | PN ---
PATIENT:GABI TOLLIVER MEDICAL RECORD: [id number] LOCATION:RAMAKRISHNAJasbir DerekMelaShabana ADMISSION DATE: 03/26/19 PROGRESS NOTE DATE OF SERVICE: 04/10/2019 SUBJECTIVE: The patient's case was discussed with staff. She has no new complaint. OBJECTIVE: The patient is in good behavioral control. She has limited insight about her condition. She is tolerating her medicines well. ASSESSMENT: No change in diagnoses. PLAN: The patient will be transitioned out of the hospital today. Long-term prognosis is guarded. Followup will be with her primary care half-way physician. TRANSINT:[id number] Voice Confirmation ID: [id number] DOCUMENT ID: [id number] LAMAR DURBIN MD at 1225 CC: [id number] DICTATION DATE: 04/10/19 1616 PLASTER DIE MAKER: 04/10/19 2221 DIS IN 04/10/19 [facility] [address] [place] [address]
--- NOTE | 2019-04-14 12:04 | EC ---
PATIENT:GABI TOLLIVER DATE OF SERVICE: 03/26/19 SEX: F MEDICAL RECORD: [id number] DATE OF : 44 LOCATION:JAM PhanShabana AGE OF PATIENT: 79 ADMISSION DATE: 03/26/19 REFERRING PHYSICIAN: INTERPRETING PHYSICIAN: NOAM JASSO MD ECHOCARDIOGRAM REPORT ECHO CHARGES 4 ECHO COMPLETE Date: 04/02/19 CLINICAL DIAGNOSIS: IRREGULAR HEARTBEAT ECHOCARDIOGRAPHIC MEASUREMENTS (adult normal given) AC root (d.<3.7cm) 2.0 cm LV Septum d (<1.2 cm> 1.2 cm Valve Excursion 1.4 cm LV Septum (systole) 1.5 cm Left Atria (s.<4.0cm> 3.0 cm LVPW d(<1.2cm) 0.8 cm RV (d.<2.3cm) 3.1 cm LVPW (sytole) 1.1 cm LV diastole(<5.6CM) 4.0 cm MV E-F(>70mm/sec) cm LV systole 2.2 cm LVOT Diameter 1.5 cm MV exc.(>10mm) cm Est.ejection fraction (50-75%) % DOPPLER: LVIT cm/sec A 77 cm/sec E 72 cm/sec LA cm/sec RVSP 32.3 mmHg LVOT 109 cm/sec AOP1/2T m/s Asc. Ao 198 cm/sec RVOT cm/sec RA cm/sec PA cm/sec AV Gradient Peak 15.7 mmHg AV Mean 9.1 mmHg AV Area 1.3 cm MV Gradient Peak 3.4 mmHg MV Mean 1.2 mmHg MV Area cm COMMENTS: Geological E Logger: Nemo CMBRIDEMARYCHUY MAI Variety Saw Operator: 1 Dr. Jasso TAPE# PACS Pericardial Effusion N DATE OF SERVICE: 04/03/2019 ECHOCARDIOGRAM DATE OF SERVICE: 04/03/2019 FINDINGS: 1. Left ventricular chamber size is within normal limits. Left ventricular systolic function is normal. Overall ejection fraction estimated at 55%. 2. Left atrium is within normal limits. Right atrium and right ventricular ECHOCARDIOGRAM REPORT [id number] GABI TOLLIVER chamber sizes are mildly dilated. 3. Valvular structures have normal structure and motion. 4. Doppler interrogation reveals mild aortic insufficiency, mild mitral regurgitation, mild tricuspid regurgitation, no other valvular insufficiency or stenosis. Pulmonary systolic pressure is estimated 33 mmHg. 5. No evidence of pericardial effusion or left ventricular thrombus. TRANSINT:[id number] Voice Confirmation ID: [id number] DOCUMENT ID: [id number] NOAM JSASO MD at 1204 CC: [id number] DICTATION DATE: 04/03/19 1450 OPTICAL FABRICATION TECHNICIAN: 04/03/19 1545 DIS IN 04/10/19 [place] [id number] [place] [id number]
--- NOTE | 2019-04-14 15:33 | DS ---
PATIENT:GABI TOLLIVER :44 MEDICAL RECORD: [id number] DISCHARGE SUMMARY ADMISSION DATE: 03/26/19 DISCHARGE DATE: 04/10/19 PSYCHIATRIC DISCHARGE SUMMARY IDENTIFYING DATA: The patient is 79 years old and she is admitted to the hospital on a voluntary basis because of aggression. The patient lives in a local half-way and has been aggressive and cursing at staff and other residents. She is impaired and clearly does not have any recollection of what she is doing. She is unsteady and is resistant to allowing others to help her increasing her risk of falling. She gets angry when people do try to help her, and at times, she even gets aggressive with them. She is admitted to the hospital because she was kicking, screaming, and cursing at the staff at the half-way. HOSPITAL COURSE: The patient was admitted to the hospital and fully evaluated from both medical, psychological, and social standpoint. Her initial presentation was one of a person who was quite confused and disruptive; but after being treated with memory enhancing and mood stabilizing medication, she showed significant improvement in her behavior, but no significant change in her underlying deficits related to her dementia as one would expect of course. She subsequently was calm sufficiently such that she could reasonably be transitioned back to the half-way. DISCHARGE DIAGNOSES: AXIS I: Major neurocognitive disorder of the Alzheimer's type with behavioral disturbances. AXIS II: None. AXIS III: Hypertension, congestive heart failure, hypothyroidism, and hyperlipidemia. AXIS IV: Moderate stressors. AXIS V: Global assessment of functioning is 35. PLAN: At the time of discharge, the patient was in good behavioral control with limited insight about her condition. She tolerates her medicines well. TRANSINT:[id number] Voice Confirmation ID: [id number] DOCUMENT ID: [id number] LAMAR DURBIN MD at 1533 CC: [id number] DICTATION DATE: 04/13/19 1539 HOUSECLEANER: 04/13/19 1640 DIS IN 04/10/19 [facility] [address] [place] [address]
== END 2019-04-10 18:00 | DRG 57 ==
LOC: D.PSYCH 14:13
PROVIDERS: ADMIT Psychiatry & Neurology Psychiatry; ATTEND Psychiatry & Neurology Psychiatry
DX: G30.9 Alzheimer's disease, unspecified (principal); F02.81 Dementia in other diseases classified elsewhere, unspecified severity, with behavioral disturbance; N17.9 Acute kidney failure, unspecified; I11.0 Hypertensive heart disease with heart failure; I50.9 Heart failure, unspecified; E78.5 Hyperlipidemia, unspecified; E03.9 Hypothyroidism, unspecified; F41.8 Other specified anxiety disorders; E55.9 Vitamin D deficiency, unspecified; G24.01 Drug induced subacute dyskinesia; I49.8 Other specified cardiac arrhythmias; K59.01 Slow transit constipation

== ENCOUNTER 2019-05-22 11:40 | Inpatient (IN) | payer MEDICAID ==
[2019-05-22] VITALS (18 sets, daily range): BP systolic 81–194; BP diastolic 42–121; BMI 17.5
[~2019-05-22] VITALS: Ht 165.1 cm; Wt 56.2 kg
[~2019-05-22 11:40] MED LIST changes: +ASPIRIN81 MG PO; +DEPAKOTE125 MG; +DONEPEZIL HCL10 MG; +LINZESS145 MCG; +REMERON30 MG
--- NOTE | 2019-05-22 11:40 | NUR ---
RT AT BS. CONTINUE TO AMBU ASSSIT PT. NASAL TRUMPET PLACED. PTS TONGUE SWOLLEN AND BRUISED. GROSS LIP SWELLING NOTED.
--- NOTE | 2019-05-22 11:48 | NUR ---
ABG'S DRAWN PER RT
--- NOTE | 2019-05-22 11:50 | NUR ---
PER VT PAPERWORK BROUGHT IN BY EMS PT IS DNR. DR VALENCIA NOTIIFED
[2019-05-22 12:21] LABS: MCH 33.4 pg (26.0-34.0); MCHC 34.8 g/dL (31.0-37.0); PLATELET COUNT 194 10x3/uL (130-400); RBC 4.79 10x6/uL (4.00-5.40)
[2019-05-22 12:26] LABS: APTT 34.1 SECONDS (22.8-39.4); INR 1.47 (0.85-1.17); PROTIME 17.3 SECONDS (11.6-15.0)
[2019-05-22 12:59] LABS: BASOPHILS 1 % (0-2); LYMPHOCYTES 7 % (15-50); MONOCYTES 3 % (2-11); NEUTROPHILS 73 % (40-80); PLATELET ESTIMATE NORMAL
--- NOTE | 2019-05-22 13:00 | NUR ---
16 FC PLACED, ONLY ABLE TO ADVANCE SHORT DISTANCE, SCANT AMTT URINE. L;EF TIN PLACE X 30 MINUTES NO ADDITIONAL OUTPUT. D/CD FC AND PLACED PUREWICK TO SUCTION. LEFT IN PLACE X 1 HR, NO OUTPUT NOTED. PT DRY. PLACED 14 FR FC INSERTS WITHOUT DIFFICULT BUT STILL ONLY ABLE TO ADVANCE A SHORT DISTANCE. NO URINE IN TUBE. WILL CONTINUE TO MONITOR
[2019-05-22 13:04] LABS: ALBUMIN 3.3 g/dL (3.4-5.0); ALKALINE PHOSPHATASE 112 U/L (46-116); ALT (SGPT) 31 U/L (10-68); BILIRUBIN - TOTAL 0.91 mg/dL (0.2-1.3); CALC OSMOLALITY 308 mosm/kg (275-300); CALCIUM 8.8 mg/dL (8.5-10.1); CARBON DIOXIDE 22.6 mmol/L (21.0-32.0); CHLORIDE - SERUM 105 mmol/L (98-107); PROTEIN - SERUM 6.7 g/dL (6.4-8.2); SODIUM 147 mmol/L (136-145); UREA NITROGEN 26 mg/dL (7-18); eGFR NON AFRICAN AMERICAN 26 mL/min (90-120)
[2019-05-22 13:16] LABS: CKMB 9.2 U/L (0.0-3.6); CREATINE KINASE 224 UL (21-215); PRO BNP 1467 pg/mL (0-450)
[2019-05-22 13:23] LABS: GLUCOSE 311 mg/dL (74-106); POTASSIUM - SERUM 4.2 mmol/L (3.5-5.1)
[2019-05-22 13:24] LABS: TROPONIN-I 1.182 ng/mL (0.000-0.060)
--- NOTE | 2019-05-22 13:29 | NUR ---
NT SX BY RT OBTAINED BRIGHT RED SECRETIONS AUDIBLE RHONCHI SOME CLEARING AFTER SX
--- NOTE | 2019-05-22 13:45 | NUR ---
LARGE AMT BRIGHT RED FROTHY SPUTUM, RT ET SUCTIONED WITH THE SAME.
--- NOTE | 2019-05-22 13:55 | NUR ---
REPEAT EKG PERFORMED
--- NOTE | 2019-05-22 14:19 | NUR ---
PTS HR STILL ELEVATED SPOKE WITH DR VALENCIA INCREASED CARDIZEM DRIP TO 15 ML/HR
--- NOTE | 2019-05-22 14:54 | NUR ---
DR ROTH HERE SPEAKING WITH DR VALENCIA. HR STILLELEVATED. ORDERS RCVD TO GIVE ANOTHER 15 MG BOLUS OF CARDIZEM AND INCREASE CARDIZEM DRIP TO 20 ML.HR
--- NOTE | 2019-05-22 15:16 | NUR ---
BP DROPPED. CARDIZEM GTT DECREASED TO 15 ML/HR AND NOTIFIED DR GARCIA. NEW ORDER FOR 500 ML BOLUS RCVD AND ADMIN
[2019-05-22 15:18] LABS: HEMATOCRIT 46.5 % (36.0-48.0); HEMOGLOBIN 13.2 g/dL (12-16)
--- NOTE | 2019-05-22 15:24 | NUR ---
NO URINE OUTPUT IN FC. DR GARCIA NOTIFIED. BLADDER SCANNER SHOWS 0 ML IN BLADDER
--- NOTE | 2019-05-22 15:40 | NUR ---
SALINE BOLUS COMPLETE AT THIS TIME
[2019-05-22 15:49] LABS: CKMB 13.4 U/L (0.0-3.6); CREATINE KINASE 316 UL (21-215); TROPONIN-I 3.425 ng/mL (0.000-0.060)
[2019-05-22 15:54] LABS: T4 THYROXIN - FREE 1.05 ng/dL (0.76-1.46); THYROID STIMULATING HORMONE 3.9 uIU/mL (0.36-3.74)
--- NOTE | 2019-05-22 16:00 | NUR ---
TRANSPORTED TO ICU #230. IN ROUTE NOTED CLOUDY YELLOW URINE APPROX 50 ML IN FC TUBING.
--- NOTE | 2019-05-22 16:30 | NUR ---
REC'D PT FROM ER, ASSISTED PT INTO ICU BED. MONITORS ON AND WORKING, PT IN AFIB WITH RVR, HYPOTENSIVE, CONFUSED UNABLE TO ANSWER QUESTIONS. MAYO STAT LOCKED IN PLACE. TRAUMA NOTED TO MOUTH FROM FALL AT LONG TERM, TONGUE AND LIPS BLOODY AND SWOLLEN. PT CURRENTLY ON BIPAP, 100% O2. SEE FLOW SHEET FOR FURTHER DETAILS. WILL CONTINUE TO OBSERVE.
--- NOTE | 2019-05-22 16:55 | MORECARE ---
CASE MANAGEMENT DISCHARGE SUMMARY PATIENT: GABI TOLLIVER UNIT: [id number] ADM DATE: 05/22/19 AGE: 79 : 42 SEX: F ROOM/BED: D.2307 AUTHOR: IGNACIA BUCK PHYSICIAN: REFERRING PHYSICIAN: STEVE GARCIA MD DATE OF SERVICE: 05/22/19 Discharge Plan Patient Name: GABI TOLLIVER [facility] [facility] 1940 Planned Disposition: Anticipated Discharge Date: 05/25/19 Discharge Date: Expected LOS: 3 Initial Reviewer: [email or web address] Initial Review Date: 05/22/2019 Generated: 05/22/19 5:54 pm DCP- Discharge Planning Updated by [email or web address]: Jory Hanks on 05/22/19 3:[address] DC PLAN: Return to [facility]. Patient with dementia and requiring bipap. She is not able to answer questions, she can only state her name. Jory Hanks RN, [facility] Patient Name: GABI TOLLIVER Page [id number] at 1655 All edits/amendments must be made on the electronic document DICTATION DATE: 05/22/191653 CROSSCUTTER: BALTA 05/22/191653 RPT#: [id number] DC DATE: STATUS: ADM IN [facility] [address] [place] [address] END OF REPORT
--- NOTE | 2019-05-22 17:00 | NUR ---
PT ON BIPAP, IVF INFUSING, BP AND HEART RATE IMPROVING.
[2019-05-22 17:44] LABS: APPEARANCE HAZY (CLEAR); BILIRUBIN NEGATIVE (NEGATIVE); COLOR YELLOW (YELLOW); GLUCOSE 50 mg/dL (NEGATIVE); KETONE NEGATIVE (NEGATIVE); NITRITE NEGATIVE (NEGATIVE); PROTEIN 1+ mg/dL (NEGATIVE); UROBILINOGEN NORMAL (NORMAL)
[2019-05-22 17:46] LABS: EPITHELIAL CELLS OCC /hpf (0-5); RED CELLS - URINE 25-50 /hpf (0-5); WHITE CELLS - URINE 0-5 /hpf (NEGATIVE)
[2019-05-22 17:47] LABS: BACTERIA MODERATE /hpf (NEGATIVE)
--- NOTE | 2019-05-22 19:00 | NUR ---
PATIENT CONFUSED, IN NO DISTRESS. BED LOWERED/LOCKED. NO FAMILY AT BEDSIDE. BIPAP ON 80% PATIENT HAS MOUTH TRAUMA FROM PREVIOUS FALL DURING THE DAY, EDEMA TO TONGUE. PATIENT HAS NASAL AIRWAY IN LT NARE. CALL LIGHT WITHIN REACH. WILL CONTINUE TO MONITOR.
--- NOTE | 2019-05-22 21:00 | NUR ---
PATIENT IN NO DISTRESS. BIPAP LOWERED TO 60% PER RT. MAYO SECURED BELOW BLADDER, TUBING FREE OF LOOPS. BED LOWERED/LOCKED. RAILS UP TO PROTECT PATIENT FROM FALL AND CALL LIGHT WITHIN REACH. WILL CONTINUE TO MONITOR.
[2019-05-22 21:57] LABS: CKMB 27.6 U/L (0.0-3.6); CREATINE KINASE 841 UL (21-215)
[2019-05-22 21:58] LABS: TROPONIN-I 3.677 ng/mL (0.000-0.060)
[2019-05-22 23:47] LABS: HEMATOCRIT 46.6 % (36.0-48.0)
[2019-05-23] VITALS (24 sets, daily range): BP systolic 92–126; BP diastolic 62–94; Ht 165.1 cm; Wt 56.2 kg
--- NOTE | 2019-05-23 01:00 | NUR ---
PATIENT RESTING QUIETLY, NO DISTRESS NOTED. BIPAP LOWERED TO 50% PER RT. BED LOWERED/LOCKED AND CALL LIGHT IS WITHIN REACH. WILL CONTINUE TO MONITOR.
--- NOTE | 2019-05-23 03:00 | NUR ---
CHG BATH GIVEN, GOWN CHANGE AND COMPLETE LINEN CHANGE. PATIENT TURNED TO LT SIDE WITH WEDGE TO SUPPORT BACK. SLIGHT REDNESS NOTED TO COCCYX AREA. DRESSING CHANGED TO BOTH PIV. PATIENT TOLERATED WELL. PATIENT IN NO DISTRESS. BED LOWERED/LOCKED AND CALL LIGHT WITHIN REACH. MAYO SECURED BELOW BLADDER AND TUBING FREE OF LOOPS. WILL CONTINUE TO MONITOR.
[2019-05-23 03:25] LABS: BASOPHILS 0.2 % (0-2); EOSINOPHILS 0 % (0-7); HEMATOCRIT 47.4 % (36.0-48.0); HEMOGLOBIN 15.8 g/dL (12-16); IMMATURE GRANULOCYTES 0.6 % (0-5); LYMPHOCYTES 10.5 % (15-50); MCH 32.3 pg (26.0-34.0); MCHC 33.3 g/dL (31.0-37.0); MCV 96.9 fL (80.0-100.0); MEAN PLATELET VOLUME 10.7 fL (7.4-10.4); MONOCYTES 4.2 % (2-11); NEUTROPHILS 84.5 % (40-80); RBC 4.89 10x6/uL (4.00-5.40); RDW 13.3 % (11.5-14.5); WBC 17.5 10x3/uL (4.8-10.8)
[2019-05-23 03:26] LABS: PLATELET COUNT 146 10x3/uL (130-400)
[2019-05-23 03:52] LABS: ALKALINE PHOSPHATASE 95 U/L (46-116); ALT (SGPT) 33 U/L (10-68); BILIRUBIN - TOTAL 0.63 mg/dL (0.2-1.3); CALCIUM 8.7 mg/dL (8.5-10.1); CARBON DIOXIDE 26.8 mmol/L (21.0-32.0); CHLORIDE - SERUM 110 mmol/L (98-107); CKMB 10.8 U/L (0.0-3.6); CREATINE KINASE 757 UL (21-215); POTASSIUM - SERUM 4.1 mmol/L (3.5-5.1); PROTEIN - SERUM 6.1 g/dL (6.4-8.2); SODIUM 151 mmol/L (136-145); UREA NITROGEN 32 mg/dL (7-18)
[2019-05-23 03:54] LABS: CALC OSMOLALITY 310 mosm/kg (275-300); CREATININE - SERUM 2.7 mg/dL (0.6-1.3); GLUCOSE 162 mg/dL (74-106); TROPONIN-I 3.073 ng/mL (0.000-0.060); eGFR NON AFRICAN AMERICAN 18 mL/min (90-120)
--- NOTE | 2019-05-23 04:30 | NUR ---
IV TO RT WRIST REMOVED DUE TO LEAKING. NEW IV STARTED IN LT WRIST, 22G. PATIENT TOLERATED WELL. SKIN TEAR TO LT ELBOW REDRESSED.
--- NOTE | 2019-05-23 07:00 | NUR ---
SHIFT ASSESSMENT COMPLETED. PT CARE ASSUMED, MONITORS ON AND WORKING, VITALS STABLE. PT ON BIPAP TOLERATING WELL. FOLET CATH STAT LOCKED IN PLACE. SEE FLOW SHEET FOR FURTHER DETAILS. WILL CONTINUE TO OBSERVE.
--- NOTE | 2019-05-23 09:00 | NUR ---
PT TURNED AND REPOSITIONED FOR COMFORT. MONITORS ON AND WORKING, VITALS STABLE. CALL LIGHT WITHIN REACH, WILL CONTINUE TO OBSERVE.
--- NOTE | 2019-05-23 11:00 | NUR ---
PT OFF BIPAP, PLACED ON 4L HIGH FLOW NC, PT TOLERATING WELL. MONITORS ON AND WORKING, VITALS STABLE. CALL LIGHT WITHIN REACH, WILL CONTINUE TO OBSERVE.
--- NOTE | 2019-05-23 13:00 | NUR ---
PT SITTING UP IN BED, PT CONTINUES TO TOLERATE BEING OFF BIPAP. MONITORS ON AND WORKING, VITALS STABLE. CALL LIGHT WITHIN REACH, WILL CONTINUE TO OBSERVE.
--- NOTE | 2019-05-23 15:00 | NUR ---
PT SITTING UP IN BED EATING, MONITORS ON AND WORKING, VITALS STABLE, SEE FLOW SHEET FOR FURTHER DETIALS, WILL CONTINUE TO OBSERVE.
[2019-05-23 15:39] LABS: HEMOGLOBIN 14.2 g/dL (12-16)
--- NOTE | 2019-05-23 17:00 | NUR ---
NO CHANGES, PT RESTING IN BED, MONITORS ON AND WORKING, VITALS STABLE. PT HAD FULL LINEN BATH AND CHG ON THIS SHIFT, WILL CONTINUE TO OBSERVE.
--- NOTE | 2019-05-23 19:00 | NUR ---
RECEIVED REPORT FROM DAYSHIFT NURSE. PATIENT IN NO DISTRESS. VSS. IV INFUSING WITHOUT SIGNS OF INFILTRATION. MAYO SECURED BELOW BLADDER AND TUBING FREE OF LOOPS. OXYGEN VIA NASAL CANNULA AT 4L PRESENT. PATIENT DENIES FURTHER NEEDS OR CONCERNS AT THIS TIME. BED LOWERED/LOCKED. CALL LIGHT WITHIN REACH. WILL CONTINUE TO MONITOR.
--- NOTE | 2019-05-23 21:00 | NUR ---
VSS. PATIENT DENIES FURTHER NEEDS OR CONCERNS AT THIS TIME. BED LOWERED/LOCKED AND CALL LIGHT WITHIN REACH. WILL CONTINUE TO MONITOR.
--- NOTE | 2019-05-23 23:00 | NUR ---
PATIENT RESTING QUIETLY. VSS. NO DISTRESS NOTED. WILL CONTINUE TO MONITOR.
[2019-05-24] VITALS (24 sets, daily range): BP systolic 93–129; BP diastolic 43–81
--- NOTE | 2019-05-24 01:46 | NUR ---
PATIENT RESTING QUIETLY. NO DISTRESS NOTED. BED LOWERED/LOCKED, CALL LIGHT WITHIN REACH. WILL CONTINUE TO MONITOR.
[2019-05-24 04:06] LABS: BASOPHILS 0.1 % (0-2); EOSINOPHILS 0.2 % (0-7); HEMATOCRIT 39.6 % (36.0-48.0); HEMOGLOBIN 13.2 g/dL (12-16); IMMATURE GRANULOCYTES 0.7 % (0-5); LYMPHOCYTES 12.7 % (15-50); MCHC 33.3 g/dL (31.0-37.0); MCV 96.1 fL (80.0-100.0); MEAN PLATELET VOLUME 10.6 fL (7.4-10.4); MONOCYTES 4.1 % (2-11); NEUTROPHILS 82.2 % (40-80); RBC 4.12 10x6/uL (4.00-5.40); RDW 13.4 % (11.5-14.5)
[2019-05-24 04:08] LABS: PLATELET COUNT 107 10x3/uL (130-400); WBC 12.8 10x3/uL (4.8-10.8)
[2019-05-24 04:17] LABS: ALBUMIN 2.6 g/dL (3.4-5.0); BILIRUBIN - TOTAL 0.74 mg/dL (0.2-1.3); CALCIUM 8.4 mg/dL (8.5-10.1); PROTEIN - SERUM 5.4 g/dL (6.4-8.2)
[2019-05-24 04:19] LABS: ANION GAP 14.2 mmol/L (8-16); CREATININE - SERUM 1.6 mg/dL (0.6-1.3); POTASSIUM - SERUM 3.2 mmol/L (3.5-5.1)
--- NOTE | 2019-05-24 04:49 | NUR ---
VSS. PATIENT RESTING QUIETLY, NO DISTRESS NOTED. IV INFUSING WITHOUT SIGNS OF INFILTRATION. BED LOWERED/ LOCKED. CALL LIGHT WITHIN REACH. MAYO SECURED BELOW BLADDER TUBING FREE OF LOOPS. WILL CONTINUE TO MONITOR.
--- NOTE | 2019-05-24 10:10 | NUR ---
PT REPOSITIONED. MOUTH CARE AND FED BREAKFAST. PT TOOK IN FOOD AND LIQUID WITH OUT DIFFICULTY. NASAL TRUMPET DCD.
[2019-05-24 15:15] LABS: HEMATOCRIT 40.7 % (36.0-48.0); HEMOGLOBIN 13.8 g/dL (12-16)
--- NOTE | 2019-05-24 17:17 | NUR ---
PT CAME TO VISIT. SPOKE TO HIM RE: CODE STATUS. HE STATES THAT SHE IS A DNR. PASS CODE RECEIVED AND SPOKE TO HIM RE; PASSING CODE ALONG TO FAMILY. HE STATES THAT HE WILL TELL HER CHILDREN THE PASS WORD. L HAND IV LEAKING. IV RESITED RT AC. L FA IV INFILTRATING. IV RESITED TO RT WRIST. HEPARIN GTT STARTED PER PROTOCOL ORDERED.
--- NOTE | 2019-05-24 19:15 | NUR ---
Received patient resting in bed with eyes open, assessment completed per flowsheet. Patient Disoriented to time/place/situation, follows instructions with word salad noted. Maxillofacial bruising/swelling noted, small oral sores. S1/S2 noted NSR on telemetry, rythmic and regular. Breathing is shallow on 4L via HFNC with O2 sat 97%, lung sounds clear bilateral upper and mid with diminished lower. Abdomen is round/soft with bowel sounds active x4. non-tender. De Leon secured, yellow urine noted. All pulses palpable with cap refill < 3 sec, skin warm/dry. Denies pain or other needs at this time, see flowsheet for details. All VSS and will continue to monitor.
--- NOTE | 2019-05-24 21:00 | NUR ---
Patient resting in bed with eyes open, HS meds held at this time. Patient disoriented to time/place/situation, occasionally yells out incomprehensible phrases. Denies pain or other needs, will continue to monitor.
[2019-05-24 22:37] LABS: HEMATOCRIT 39.5 % (36.0-48.0); HEMOGLOBIN 13.2 g/dL (12-16)
--- NOTE | 2019-05-24 23:10 | NUR ---
Reassessment completed per flowsheet, no changes noted from previous assessment. S1/S2 noted NSR on telemetry, rythmic and regular. Breathing is shallow on 4L via HFNC with O2 sat 100%, lung sounds clear bilateral upper and mid with diminished lower. Maxillofacial bruising noted, small sore noted lips/oral cavity. All pulses palpable with cap refill < 3 sec, skin warm/dry. Denies pain or other needs at this time, see flowsheet for details. All VSS and will continue to monitor.
[2019-05-25] VITALS (14 sets, daily range): BP systolic 100–133; BP diastolic 1–82
--- NOTE | 2019-05-25 01:00 | NUR ---
Patient awake in bed with eyes closed, no s/s of distress at this time. Disoriented x3, follows instructions. No further needs at this time, all VSS and will continue to monitor.
[2019-05-25 02:57] LABS: BASOPHILS 0.1 % (0-2); EOSINOPHILS 1.5 % (0-7); IMMATURE GRANULOCYTES 0.8 % (0-5); MCH 32.1 pg (26.0-34.0); MCHC 33.3 g/dL (31.0-37.0); MCV 96.3 fL (80.0-100.0); MONOCYTES 4.5 % (2-11); NEUTROPHILS 71.1 % (40-80); PLATELET COUNT 100 10x3/uL (130-400); RBC 4.05 10x6/uL (4.00-5.40); RDW 13.2 % (11.5-14.5); WBC 10.5 10x3/uL (4.8-10.8)
--- NOTE | 2019-05-25 03:05 | NUR ---
Reassessment completed per flowsheet, no changes noted from previous assessment. Patient disoriented to time/place/situation, yells out in sleep. S1/S2 noted NSR on telemetry, rythmic and regular. Breathing is shallow on 4L via HFNC with o2 sat 99%, lung sounds clear bilateral upper and mid with diminished lower. All pulses palpable with cap refill < 3 sec, skin warm/dry. Denies pain or other needs at this time, see flowsheet for details. All VSS and will continue to monitor.
[2019-05-25 03:14] LABS: ALBUMIN 2.4 g/dL (3.4-5.0); ANION GAP 14.5 mmol/L (8-16); BILIRUBIN - TOTAL 0.85 mg/dL (0.2-1.3); CALCIUM 8.6 mg/dL (8.5-10.1); CARBON DIOXIDE 22.3 mmol/L (21.0-32.0); POTASSIUM - SERUM 3.8 mmol/L (3.5-5.1); PROTEIN - SERUM 5.7 g/dL (6.4-8.2)
[2019-05-25 03:17] LABS: CREATININE - SERUM 1.1 mg/dL (0.6-1.3)
--- NOTE | 2019-05-25 05:00 | NUR ---
Patient resting in bed with eyes closed, no s/s of distress at this time. Patient disoriented x3 with some inapropriate responses, follows instructions. Denies pain or other needs at this time, all VSS and will continue to monitor.
--- NOTE | 2019-05-25 07:00 | NUR ---
SHIFT ASSESSMENT COMPLETED, PT CARE ASSUMED. MONITORS ON AND WORKING, VITALS STABLE. SEE FLOW SHEET FOR FURTHER DETAILS. CALL LIGHT WITHIN REACH, WILL CONTINUE TO OBSERVE.
--- NOTE | 2019-05-25 09:00 | NUR ---
PT TURNED AND REPOSITIONED FOR COMFORT, MONITORS ON AND WORKING, VITALS STABLE. CALL LIGHT WITHIN REACH, WILL CONTINUE TO OBSERVE.
--- NOTE | 2019-05-25 12:51 | NUR ---
PATIENT HAS FACIAL BRUISING AROUND RIGHT SIDE OF FACE AND BOTTOM LIP IS BLOODY. ALERT TO PERSON. IV IN RIGHT WRIST WITH D51/2NS @75. EXP WHEEZES PRESENT IN ALL LOBES, S1,S2 HEARD BUT DISTANT. BOWEL SOUNDS ACTIVE X 4. MAYO IN PLACE. BILAT BRUISING ON ARMS. SKIN TEAR AROUND LEFT AC COVERED WITH TEGADERM. REDNESS ON BUTTOCK THAT BLANCHES. CL IN REACH. NO FURTHER NEEDS AT THIS TIME.
--- NOTE | 2019-05-25 14:34 | CN ---
PATIENT NAME:GABI JETT MEDICAL RECORD: [id number] : 44 LOCATION:D.MS [id number] ADMIT DATE: 05/22/19 ACCOUNT: [id number] CONSULTING PHYSICIAN: NOAM ROTH MD REFERRING PHYSICIAN: STEVE GARCIA MD DATE OF CONSULTATION: 05/22/2019 CARDIOLOGY CONSULTATION DIAGNOSES: 1. Atrial fibrillation. 2. Tachycardia. 3. Pneumonia. 4. Respiratory distress. HISTORY OF PRESENT ILLNESS: Mrs. Jett was supposedly sent to [facility] ER yesterday after a fall. She was sent back to the shelter where she developed respiratory distress. She now shows up in our Emergency Room. She has an aspiration pneumonia. She is in atrial fibrillation with rapid ventricular response in the 150-160 range. Troponin is elevated, compatible with a non-Q-wave myocardial infarction. Her cardiac history is largely unknown. She is a DNR, she is unable to give us a huge amount of history, but she denies any overt cardiac history. She does not have a history of atrial fibrillation as best she knows. She does not have a history of ischemic heart disease. PHYSICAL EXAMINATION: CONSTITUTIONAL/GENERAL APPEARANCE: Well nourished, well developed, appears stated age. EYES: Lids and conjunctivae noninjected. No discharge. No pallor. ENT: Lips within normal limit. No cyanosis. No pallor. NECK: Carotid arteries, bilateral normal upstroke. No bruits. No thrills. No jugular venous pressure or distention. CERVICAL LYMPH NODES: Nontender. Nonenlarged. THYROID: Not enlarged. No nodules. CARDIOVASCULAR: Precordial exam, nondisplaced. No heaves or pericardial thrills. Rate and rhythm, regular. Heart sounds, normal S1, normal S2. No S3, no gallop, no rub. Systolic murmur, not heard. Diastolic murmur, not heard. RESPIRATORY: Respiratory effort, unlabored. Normal curvature. No thoracic deformity. No chest wall tenderness. Percussion, resonant. Auscultation, clear. No wheezes, no rales, no rhonchi. ABDOMEN: Soft, nondistended, nontender. No abdominal pain, no vomiting and normal appetite. MUSCULOSKELETAL: No joint tenderness, normal gait, normal tone. SKIN: Warm and dry. OVERALL IMPRESSION: Atrial fibrillation with rapid ventricular response. At this time, her systolic blood pressures in the 150s. We will increase her Cardizem to 20 mg an hour, give her another bolus of 20 mg Cardizem. At this point, I do not think she is able to take p.o. We will center medical management with treatment of the atrial fibrillation on IV Cardizem. TRANSINT:[id number] Voice Confirmation ID: [id number] DOCUMENT ID: [id number] CONSULT REPORT [id number] GABI JETT, NOAM LÓPEZ at 1434 CC: [id number] DICTATION DATE: 05/22/19 1458 ADMINISTRATIVE AND PROGRAM SPECIALIST: 05/23/19 0108 ADM IN [facility] [address] [id number]
[2019-05-25 14:51] LABS: HEMATOCRIT 37.2 % (36.0-48.0); HEMOGLOBIN 12.6 g/dL (12-16)
--- NOTE | 2019-05-25 20:36 | NUR ---
IN BED EYES CLOSED RESP. DEEP AND EVEN. 02 4L NC.FACIAL BRUISING OBSERVED.BED ARMED FOR SAFETY WILL CONTINUE TO MONITOR FOR ANY CHGES AND FOLLOW CURRENT PLAN OF CARE
[2019-05-26] VITALS: BP 106/63
[2019-05-26 00:06] LABS: HEMATOCRIT 38.7 % (36.0-48.0); HEMOGLOBIN 13.4 g/dL (12-16)
[2019-05-26 06:13] VITALS: BP 120/68
[2019-05-26 06:50] LABS: BASOPHILS 0.3 % (0-2); EOSINOPHILS 2.9 % (0-7); HEMATOCRIT 38.6 % (36.0-48.0); HEMOGLOBIN 12.9 g/dL (12-16); IMMATURE GRANULOCYTES 0.5 % (0-5); LYMPHOCYTES 36.4 % (15-50); MCH 32.1 pg (26.0-34.0); MCHC 33.4 g/dL (31.0-37.0); MEAN PLATELET VOLUME 10.5 fL (7.4-10.4); MONOCYTES 6.9 % (2-11); PLATELET COUNT 104 10x3/uL (130-400); RBC 4.02 10x6/uL (4.00-5.40); RDW 13.3 % (11.5-14.5)
[2019-05-26 06:52] LABS: WBC 5.8 10x3/uL (4.8-10.8)
[2019-05-26 07:06] LABS: ALBUMIN 2.4 g/dL (3.4-5.0); ANION GAP 14.7 mmol/L (8-16); BILIRUBIN - TOTAL 0.82 mg/dL (0.2-1.3); CALCIUM 8.4 mg/dL (8.5-10.1); CARBON DIOXIDE 20.9 mmol/L (21.0-32.0); CREATININE - SERUM 0.9 mg/dL (0.6-1.3); POTASSIUM - SERUM 3.6 mmol/L (3.5-5.1); PROTEIN - SERUM 5.3 g/dL (6.4-8.2)
--- NOTE | 2019-05-26 07:15 | NUR ---
I have reviewed this patient and I concur with the Shift Assessment completed by the Licensed Practical Nurse today this shift.
--- NOTE | 2019-05-26 08:28 | NUR ---
AWAKE AND ALERT. ORIENTED TO SELF ONLY. ATTEMPTS TO REORIENT WITHOUT SUCCESS. LUNGS ARE CLEAR BIALTERALLY, NO COUGH NOTED. SKIN IS INTACT WITHOUT REDNESS. IV TO RIGHT FOREARM IS PATENT AND SL TO RIGHT WRIST PATETN WTIHOUT REDNESS AT INSERTION SITE. MAYO PATENT WITH CLEAR YELLOW URINE. DENIES NEEDS. BRUISING AROUND MOUTH NOTED, APPEARS TO BE HEALING.
[2019-05-26 08:55] VITALS: BP 153/91
--- NOTE | 2019-05-26 09:30 | NUR ---
ATE PART OF BREAKFAST WITH STAFF FEEDING HER. NO NEEDS NOTED.
[2019-05-26 12:15] VITALS: BP 129/73
--- NOTE | 2019-05-26 13:06 | MORECARE ---
CASE MANAGEMENT DISCHARGE SUMMARY PATIENT: GABI TOLLIVER UNIT: [id number] ADM DATE: 05/22/19 AGE: 79 : 42 SEX: F ROOM/BED: D.2238 AUTHOR: IGNACIA BUCK PHYSICIAN: REFERRING PHYSICIAN: STEVE GARCIA MD DATE OF SERVICE: 05/26/19 Discharge Plan Patient Name: GABI TOLLIVER [facility] [facility] 1940 Planned Disposition: Anticipated Discharge Date: 05/25/19 Discharge Date: Expected LOS: 3 Initial Reviewer: [email or web address] Initial Review Date: 05/22/2019 Generated: 05/26/19 2:05 pm Comments DCP- Discharge Planning Updated by [email or web address]: Fior Sarabia on 05/26/19 12:[address] CM called at [phone], he states his has lived at [facility] for about a year and plans are to return there on discharge. I spoke with tim Steward for [facility] and she states patient is in a senior living bed and will return to intermission coordinator bed when released. CM will continue to follow and assist with discharge planning/needs. DCP- Discharge Planning Updated by [email or web address]: Jory Hanks on 05/22/19 3:[address] DC PLAN: Return to [facility]. Patient with dementia and requiring bipap. She is not able to answer questions, she can only state her name. Jory Hanks RN, [facility] Last DP export: 05/22/19 3:55 p Patient Name: GABI TOLLIVER Page [id number] at 1306 All edits/amendments must be made on the electronic document DICTATION DATE: 05/26/19 1305 MERGERS AND ACQUISITIONS ASSOCIATE: BALTA 05/26/19 1305 RPT#: [id number] DC DATE: STATUS: ADM IN [facility] [address] [facility] [place] [address] END OF REPORT
[2019-05-26 16:02] LABS: HEMATOCRIT 40.2 % (36.0-48.0); HEMOGLOBIN 13.6 g/dL (12-16)
[2019-05-26 16:20] VITALS: BP 144/82
--- NOTE | 2019-05-26 18:44 | NUR ---
BP 160/80 MANUAL
--- NOTE | 2019-05-26 19:13 | NUR ---
CALL IN TO [facility] FOR PAIN MED FOR PATIENT. FAMILY FELT SHE WAS UNCOMFORTABLE AND SHE AGREED TO SAME. WILL MONITOR.
[2019-05-26 22:21] VITALS: BP 139/77
--- NOTE | 2019-05-26 23:02 | NUR ---
LYING QUEITLY WITH NO DISTRESS NOTED. RESP EVEN AND UNLABORED. BRUISING NOTED AROUND MOUTH.IV TO RFA INTACT WITHOUT REDNESS OR EDEMA NOTED.MAYO PATENT AND DRAINING DARK IVANA URINE. CL IN REACH. FALL PRECAUTIONS IN PLACE.
[2019-05-26 23:16] LABS: HEMATOCRIT 37.8 % (36.0-48.0)
[2019-05-27 01:50] VITALS: BP 128/75
[2019-05-27 04:58] VITALS: BP 125/71
[2019-05-27 06:46] LABS: ALBUMIN 2.4 g/dL (3.4-5.0); ANION GAP 15.8 mmol/L (8-16); BILIRUBIN - TOTAL 0.72 mg/dL (0.2-1.3); CALCIUM 7.9 mg/dL (8.5-10.1); CARBON DIOXIDE 20.6 mmol/L (21.0-32.0); CREATININE - SERUM 0.8 mg/dL (0.6-1.3); POTASSIUM - SERUM 3.4 mmol/L (3.5-5.1); PROTEIN - SERUM 5.5 g/dL (6.4-8.2)
[2019-05-27 06:50] LABS: BASOPHILS 0.6 % (0-2); EOSINOPHILS 3.1 % (0-7); HEMATOCRIT 39.2 % (36.0-48.0); HEMOGLOBIN 13.4 g/dL (12-16); IMMATURE GRANULOCYTES 1.1 % (0-5); LYMPHOCYTES 31.1 % (15-50); MCH 32.4 pg (26.0-34.0); MCHC 34.2 g/dL (31.0-37.0); MCV 94.9 fL (80.0-100.0); MONOCYTES 8.3 % (2-11); NEUTROPHILS 55.8 % (40-80); PLATELET COUNT 119 10x3/uL (130-400); RBC 4.13 10x6/uL (4.00-5.40); RDW 13.1 % (11.5-14.5); WBC 6.5 10x3/uL (4.8-10.8)
--- NOTE | 2019-05-27 08:06 | NUR ---
ALERT AND ORIENTED TO SELF. LUNGS CLEAR BILATERALLY. HEART SOUNDS S1 AND S2 HEARD IN ALL HERNANDEZ. BOWEL SOUNDS ACTIVE X 4. FACIAL BRUSING NOTED. O2 @ 4L NC. IV TO RIGHT ARM PATENT WITHOUT REDNESS. IV TO LEFT WRIST SL PATENT WITHOUT REDNESS. BED LOW. FALL PRECAUTIONS IN PLACE. CALL [place] AND PERSONAL ITEMS IN REACH. WILL CONTINUE TO MONITOR.
[2019-05-27 09:03] VITALS: BP 158/89
--- NOTE | 2019-05-27 10:09 | NUR ---
ATE 50% BREAKFAST. SLEEPING NOW. WILL CONTINUE TO MONITOR.
--- NOTE | 2019-05-27 10:52 | MORECARE ---
CASE MANAGEMENT DISCHARGE SUMMARY PATIENT: GABI TOLLIVER UNIT: [id number] ADM DATE: 05/22/19 AGE: 79 : 42 SEX: F ROOM/BED: D.2238 AUTHOR: IGNACIA BUCK PHYSICIAN: REFERRING PHYSICIAN: STEVE GARCIA MD DATE OF SERVICE: 05/27/19 Discharge Plan Patient Name: GABI TOLLIVER Facility: [facility]:[place] : 1940 Planned Disposition: Anticipated Discharge Date: 05/25/19 Discharge Date: Expected LOS: 3 Initial Reviewer: [email or web address] Initial Review Date: 05/22/2019 Generated: 05/27/19 11:52 am Comments DCP- Discharge Planning Updated by [email or web address]: Fior Sarabia on 05/27/19 9:[address] Updated clinical and MAR faxed to [facility] with anticipated discharge today. CM will continue to follow and assist with discharge planning/needs. DCP- Discharge Planning Updated by [email or web address]: Fior Sarabia on 05/26/19 12:[address] CM called at [phone], he states his has lived at [facility] for about a year and plans are to return there on discharge. I spoke with tim Steward for [facility] and she states patient is in a terminal carman bed and will return to residential bed when released. CM will continue to follow and assist with discharge planning/needs. DCP- Discharge Planning Updated by [email or web address]: Jory Hanks on 05/22/19 3:[address] DC PLAN: Return to [facility]. Patient with dementia and requiring bipap. She is not able to answer questions, she can only state her name. Jory Hanks RN, [facility] External Providers External Provider: [facility] Next Contact Date: Service Request Date: Service Type: Resolution: Reviewer: Comments: Tyrone DP export: 05/26/19 12:05 p Patient Name: GABI TOLLIVER Page [id number] at 1052 All edits/amendments must be made on the electronic document DICTATION DATE: 05/27/191051 GATE MANAGER: BALTA 05/27/19 105 RPT#: [id number] DC DATE: STATUS: ADM IN [facility] [address] [place] [address] END OF REPORT
--- NOTE | 2019-05-27 11:11 | NUR ---
BLOOD PRESSURE 152/88 PRIOR TO ADMIN OF SCHEDULED LOPRESSOR.
[2019-05-27] MEDS ORDERED: CARDIZEM60 MG PO ×2 (11:30→11:34)
--- NOTE | 2019-05-27 12:23 | MORECARE ---
CASE MANAGEMENT DISCHARGE SUMMARY PATIENT: GABI TOLLIVER UNIT: [id number] ADM DATE: 05/22/19 AGE: 79 : 42 SEX: F ROOM/BED: D.2238 AUTHOR: HEBER,DOC PHYSICIAN: REFERRING PHYSICIAN: STEVE GARCIA MD DATE OF SERVICE: 05/27/19 Discharge Plan Patient Name: GABI TOLLIVER Facility: [facility]:[place] : 1940 Planned Disposition: Anticipated Discharge Date: 05/25/19 Discharge Date: Expected LOS: 3 Initial Reviewer: [email or web address] Initial Review Date: 05/22/2019 Generated: 05/27/19 1:22 pm Comments DCP- Discharge Planning Updated by [email or web address]: Fior Sarabia on 05/27/19 11:[address] Patient Name: GABI TOLLIVER Encounter No: [id number] : 1940 Primary Insurance: MEDICAID [place] Anticipated DC Date: 05-25-2019 Planned Disposition: External Planned Provider: : DCP follow-up note: Received discharge orders. I called patient's and informed that she was returning to [facility] today via ambulance and he is in agreement to plan. I spoke with Nichelle at [facility] and she agrees to ambulance transfer, they can accept her today. I informed Nichelle she was on 4 liters [place] oxygen. Nurse to call report to [phone]. Case management will follow and assist as needed. Fior Sarabia DCP- Discharge Planning Updated by [email or web address]: Fior Sarabai on 05/27/19 9:[address] Updated clinical and MAR faxed to [facility] with anticipated discharge today. CM will continue to follow and assist with discharge planning/needs. DCP- Discharge Planning Updated by [id number]: Fior Sarabia on 05/26/19 12:[address] CM called at [phone], he states his has lived at [facility] for about a year and plans are to return there on discharge. I spoke with tim Steward for [facility] and she states patient is in a retirement bed and will return to retirement bed when released. CM will continue to follow and assist with discharge planning/needs. DCP- Discharge Planning Updated by [email or web address]: Jory Hanks on 05/22/19 3:[address] DC PLAN: Return to [facility]. Patient with dementia and requiring bipap. She is not able to answer questions, she can only state her name. Jory Hanks RN, [facility] Last DP export: 05/27/19 9:52 a Patient Name: GABI TOLLIVER Page [id number] at 1223 All edits/amendments must be made on the electronic document DICTATION DATE: 05/27/19 1222 CUSTOMER SOLUTIONS SPECIALIST: BALTA 05/27/19 1222 RPT#: [id number] DC DATE: STATUS: ADM IN [facility] [address] [place] [address] END OF REPORT
[2019-05-27 12:56] VITALS: BP 124/88
--- NOTE | 2019-05-27 13:00 | NUR ---
PATIENT UNABLE TO SIGN DISCHARGE PAPERWORK D/T DEMENTIA. IV REMOVED FROM RIGHT WRIST WITH TIP INTACT. IV REMOVED FROM RIGHT AC WITH TIP INTACT. MAYO REMOVED. AMBULANCE CALLED.
--- NOTE | 2019-05-27 13:11 | NUR ---
REPORT CALLED TO [facility]. NO FURTHER QUESTIONS.
--- NOTE | 2019-05-27 13:13 | NUR ---
EMERGENCY CONTACT, PIEDAD TOLLIVER, NOTIFIED PATIENT RETURNING TO [facility].
--- NOTE | 2019-05-27 15:15 | NUR ---
PATIENT DISCHARGED TO [facility] BY AMBULANCE WITH ALL BELONGINGS.
--- NOTE | 2019-05-27 15:17 | NUR ---
REFUSED BLOOD SUGAR CHECK.
[2019-05-27 15:22] LABS: HEMOGLOBIN 14.2 g/dL (12-16)
--- NOTE | 2019-06-02 07:16 | MORECARE ---
CASE MANAGEMENT DISCHARGE SUMMARY PATIENT: GABI TOLLIVER UNIT: [id number] ADM DATE: 05/22/19 AGE: 79 : 42 SEX: F ROOM/BED: D.2238 AUTHOR: HEBER,DOC PHYSICIAN: REFERRING PHYSICIAN: STEVE GARCIA MD DATE OF SERVICE: 06/02/19 Discharge Plan Patient Name: GABI TOLLIVER Facility: [facility]:[place] : 1940 Planned Disposition: [facility] Facility w Plan Readm Anticipated Discharge Date: 05/25/19 Discharge Date: 05/27/2019 Expected LOS: 3 Initial Reviewer: [email or web address] Initial Review Date: 05/22/2019 Generated: 06/02/19 8:16 am Comments DCP- Discharge Planning Updated by [email or web address]: Fior Sarabia on 05/27/19 11:[address] Patient Name: GABI TOLLIVER Encounter No: [id number] : 1940 Primary Insurance: MEDICAID [place] Anticipated DC Date: 05-25-2019 Planned Disposition: External Planned Provider: : DCP follow-up note: Received discharge orders. I called patient's and informed that she was returning to [facility] today via ambulance and he is in agreement to plan. I spoke with Nichelle at [facility] and she agrees to ambulance transfer, they can accept her today. I informed Nichelle she was on 4 liters [place] oxygen. Nurse to call report to [phone]. Case management will follow and assist as needed. Fior Sarabia DCP- Discharge Planning Updated by [email or web address]: Fior Sarabia on 05/27/19 9:[address] Updated clinical and MAR faxed to [facility] with anticipated discharge today. CM will continue to follow and assist with discharge planning/needs. DCP- Discharge Planning Updated by [email or web address]: Fior Sarabia on 05/26/19 12:[address] CM called at [phone], he states his has lived at [facility] for about a year and plans are to return there on discharge. I spoke with tim Steward for [facility] and she states patient is in a director of distribution bed and will return to director of distribution bed when released. CM will continue to follow and assist with discharge planning/needs. DCP- Discharge Planning Updated by [id number]: Jory Hanks on 05/22/19 3:[address] DC PLAN: Return to [facility]. Patient with dementia and requiring bipap. She is not able to answer questions, she can only state her name. Jory Hanks RN, [facility] Last DP export: 05/27/19 11:23 a Patient Name: GABI TOLLIVER Page [id number] at 0716 All edits/amendments must be made on the electronic document DICTATION DATE: 06/02/19715 HOTEL ATTENDANT: BALTA 06/02/19715 RPT#: [id number] DC DATE:05/27/19 STATUS: DIS IN [facility] [address] [place] [address] END OF REPORT
== END 2019-05-27 15:40 | DRG 871 ==
LOC: D.ER 11:40 → D.ICU 11:42 → D.MS 11:42
PROVIDERS: Emergency Medicine; ADMIT Internal Medicine Nephrology; ATTEND Internal Medicine Nephrology
PROC: 5A09357 Assistance with Respiratory Ventilation, Less than 24 Consecutive Hours, Continuous Positive Airway Pressure (ICD-10-PCS; principal; 2019-05-23)
DX: A41.9 Sepsis, unspecified organism (principal); J69.0 Pneumonitis due to inhalation of food and vomit; J96.01 Acute respiratory failure with hypoxia; E43 Unspecified severe protein-calorie malnutrition; R53.2 Functional quadriplegia; I21.A1 Myocardial infarction type 2; D62 Acute posthemorrhagic anemia; Z68.1 Body mass index [BMI] 19.9 or less, adult; N17.9 Acute kidney failure, unspecified; E87.0 Hyperosmolality and hypernatremia; N39.0 Urinary tract infection, site not specified; S09.92XA Unspecified injury of nose, initial encounter; W06.XXXA Fall from bed, initial encounter; I10 Essential (primary) hypertension; I48.91 Unspecified atrial fibrillation; E11.9 Type 2 diabetes mellitus without complications; G30.9 Alzheimer's disease, unspecified; F02.80 Dementia in other diseases classified elsewhere, unspecified severity, without behavioral disturbance, psychotic disturbance, mood disturbance, and anxiety; Z66 Do not resuscitate

== ENCOUNTER 2019-05-30 18:53 | Inpatient (IN) | payer MEDICARE ==
[2019-05-30] VITALS (19 sets, daily range): BP systolic 63–139; BP diastolic 36–110; BMI 18.8
[~2019-05-30] VITALS: Ht 165.1 cm; Wt 51.5 kg
[~2019-05-30 18:53] MED LIST changes: +CARDIZEM60 MG PO
[2019-05-30] MEDS ORDERED: LASIX20 MG PO (19:29)
[2019-05-30] MEDS ORDERED: PROMOD LIQUID P30 M1 PO (19:31)
[2019-05-30 19:38] LABS: BASOPHILS 0.2 % (0-2); EOSINOPHILS 0.1 % (0-7); HEMATOCRIT 48.6 % (36.0-48.0); HEMOGLOBIN 15.8 g/dL (12-16); IMMATURE GRANULOCYTES 0.8 % (0-5); LYMPHOCYTES 14.9 % (15-50); MCH 32.6 pg (26.0-34.0); MCHC 32.5 g/dL (31.0-37.0); MCV 100.2 fL (80.0-100.0); MEAN PLATELET VOLUME 10.8 fL (7.4-10.4); MONOCYTES 6.7 % (2-11); NEUTROPHILS 77.3 % (40-80); RBC 4.85 10x6/uL (4.00-5.40); RDW 13.8 % (11.5-14.5); WBC 15.7 10x3/uL (4.8-10.8)
[2019-05-30 19:39] LABS: PLATELET COUNT 239 10x3/uL (130-400)
[2019-05-30 20:00] LABS: ALBUMIN 2.9 g/dL (3.4-5.0); ALKALINE PHOSPHATASE 144 U/L (46-116); ALT (SGPT) 37 U/L (10-68); BILIRUBIN - TOTAL 1.09 mg/dL (0.2-1.3); CALC OSMOLALITY 300 mosm/kg (275-300); CALCIUM 8.4 mg/dL (8.5-10.1); CARBON DIOXIDE 14.7 mmol/L (21.0-32.0); CHLORIDE - SERUM 105 mmol/L (98-107); CREATININE - SERUM 1.4 mg/dL (0.6-1.3); GLUCOSE 339 mg/dL (74-106); POTASSIUM - SERUM 4.9 mmol/L (3.5-5.1); PROTEIN - SERUM 6.8 g/dL (6.4-8.2); SODIUM 141 mmol/L (136-145); UREA NITROGEN 33 mg/dL (7-18); eGFR NON AFRICAN AMERICAN 39 mL/min (90-120)
[2019-05-30 20:09] LABS: INR 1.41 (0.85-1.17); PROTIME 16.7 SECONDS (11.6-15.0)
[2019-05-30 20:21] LABS: CREATINE KINASE 252 UL (21-215); LIPASE 162 U/L (73-393); MAGNESIUM - SERUM 2.5 mg/dL (1.8-2.4); PRO BNP 7117 pg/mL (0-450); THYROID STIMULATING HORMONE 8.44 uIU/mL (0.36-3.74)
[2019-05-30 20:29] LABS: TROPONIN-I 0.224 ng/mL (0.000-0.060)
--- NOTE | 2019-05-30 21:17 | NUR ---
UPPED LEVOPHED TO 7MCG/MIN DUE TO PRESSURE OF 85/53
--- NOTE | 2019-05-30 21:44 | NUR ---
DR ONTIVEROS AT PT BEDSIDE AT THIS TIME.
--- NOTE | 2019-05-30 22:15 | NUR ---
PATIENT ARRIVED ON UNIT VIA STRETCHER ACCOMPANIED BY ER STAFF. PATIENT TRANSFERRED TO ICU BED WITH RESPIRATORY AT BEDSIDE, CONNECTED TO ICU MONITORS, ALL ALARMS ON AND WORKING. ASSESSMENT COMPLETED AT THIS TIME STAGE ONE PRESSURE ULCERS BONY PROMINENCE NOTED - COVERED WITH MEPILEX, REPOSITIONED FOR PRESSURE RELIEF. PT IS AWAKE, SYSTOLIC BP LOW - TITRATION OF LEVOPHED PER ORDERS. DIPROVAN TURNED ON FOR RESTLESSNESS TITRATION PER ORDERS. SEE IV FLOWSHEETS
--- NOTE | 2019-05-30 22:40 | NUR ---
JUDITH GAO APPLIED TO PATIENT AT THIS TIME FOR RECTAL TEMP 96.5
--- NOTE | 2019-05-30 22:40 | NUR ---
DR WOLFE PAGED AT THIS TIME
--- NOTE | 2019-05-30 22:51 | NUR ---
DR. WOLFE CONTACTED NEW ORDERS RECEIVED
--- NOTE | 2019-05-30 23:15 | NUR ---
FAMILY AT BEDSIDE, ALL QUESTIONS ANSWERED, STATES THE PATIENT IS A DNR UNABLE TO OBTAIN INFORMATION FROM [facility] AT THIS TIME, WILL CALL BACK IN THE MORNING TO VERIFY AND HAVE PAPERWORK FAXED.
[2019-05-31] VITALS (10 sets, daily range): BP systolic 70–112; BP diastolic 40–86; Ht 165.1 cm; Wt 51.5 kg
--- NOTE | 2019-05-31 00:37 | NUR ---
TEMP RECHECK - CONTINUE JUDITH GAO AT THIS TIME
--- NOTE | 2019-05-31 01:10 | NUR ---
RT AT BEDSIDE
--- NOTE | 2019-05-31 01:35 | NUR ---
PATIENT RYTHM AND BASELINE HEART RATE CHANGE
--- NOTE | 2019-05-31 01:38 | NUR ---
CODE BLUE CALLED FOR PEA ON MONITOR - SEE CODE SHEET
--- NOTE | 2019-05-31 01:52 | NUR ---
SARAHI NOTIFIED ACCOUNT MANAGER B2B PAGED AT THIS TIME
--- NOTE | 2019-05-31 02:36 | NUR ---
SON AND DAUGHTER AT BEDSIDE - SPOKEN WITH OVER THE PHONE AND NOTIFIED OF PATIENT STATUS
--- NOTE | 2019-06-03 11:47 | NUR ---
Per CMS protocol, restraint report logged into data base.
== END 2019-05-31 01:44 | DRG 871 ==
LOC: D.ER 18:53 → D.ICU 20:47
PROVIDERS: Family Medicine; ADMIT Legal Medicine; ATTEND Legal Medicine
PROC: 5A1935Z Respiratory Ventilation, Less than 24 Consecutive Hours (ICD-10-PCS; principal; 2019-05-30)
PROC: 0BH17EZ Insertion of Endotracheal Airway into Trachea, Via Natural or Artificial Opening (ICD-10-PCS; 2019-05-30)
PROC: 5A12012 Performance of Cardiac Output, Single, Manual (ICD-10-PCS; 2019-05-31)
DX: A41.9 Sepsis, unspecified organism (principal); J96.00 Acute respiratory failure, unspecified whether with hypoxia or hypercapnia; J18.9 Pneumonia, unspecified organism; R40.2114 Coma scale, eyes open, never, 24 hours or more after hospital admission; R40.2314 Coma scale, best motor response, none, 24 hours or more after hospital admission; R40.2214 Coma scale, best verbal response, none, 24 hours or more after hospital admission; F02.81 Dementia in other diseases classified elsewhere, unspecified severity, with behavioral disturbance; G30.9 Alzheimer's disease, unspecified; I11.0 Hypertensive heart disease with heart failure; I50.9 Heart failure, unspecified; E78.5 Hyperlipidemia, unspecified